=== PATIENT | female | born 1955 | race Caucasian/White ===

== ENCOUNTER 2020-09-17 09:05 | Outpatient (REF) | payer BC, SELFPAY ==
[2020-09-17 11:19] LABS: Hematocrit 40.3 % (37-47); Hemoglobin 12.6 g/dl (12.0-16.0); Mean Corpuscular HGB Conc 31.3 g/dl (31.0-35.0); Mean Corpuscular Hemoglobin 30.8 pg (27.0-33.0); Mean Corpuscular Volume 98.5 fL (80-98); Mean Platelet Volume 10.9 fL (9.4-12.3); Platelet Count 273 X10*3/uL (160-400); Red Blood Count 4.09 X10*6/uL (4.20-5.50); Red Cell Distribution Width 12.1 % (11.0-16.0)
[2020-09-17 11:35] LABS: Alanine Aminotransferase 20 U/L (0-31); Albumin Level 4.3 g/dL (3.5-5.0); Alkaline Phosphatase 53 U/L (39-117); Anion Gap 11 (12-20); Aspartate Amino Transferase 25 U/L (5-31); Bilirubin Direct 0.2 mg/dL (0.0-0.5); Bilirubin Total 0.5 mg/dL (0.0-1.0); Blood Urea Nitrogen 20 mg/dL (9-16); Calcium 8.6 mg/dL (8.4-10.2); Carbon Dioxide 27 mmol/L (22-29); Chloride 103 mmol/L (96-108); Cholesterol 175 mg/dL; Estimated Glomerular Filt Rate > 60; Glucose Fasting 89 mg/dL (60-99); HDL Cholesterol 59 mg/dL; LDL Cholesterol Calculated 100 mg/dl; Potassium 4.4 mmol/l (3.3-5.1); Sodium 137 mmol/L (135-145); Total Protein 6.7 g/dL (6.5-8.0); Triglycerides 83 mg/dL
[2020-09-17 11:55] LABS: Free T4 (Free Thyroxine) 1.22 ng/dL (0.71-1.85); Thyroid Stimulating Hormone 0.79 uIU/mL (0.32-4.0)
[2020-09-17 11:56] LABS: Vitamin D 25-OH Total 40.5 ng/mL (>30)
== END 2020-09-17 09:06 | disposition home or self-care (01) ==
LOC: HO.HMGCLDS 09:05
DX: I10 Essential (primary) hypertension (principal); E03.9 Hypothyroidism, unspecified; E78.5 Hyperlipidemia, unspecified; E55.9 Vitamin D deficiency, unspecified
CPT/HCPCS: 36415; 80053; 80061; 80076; 82248; 82306; 84439; 84443; 85027

== ENCOUNTER 2021-06-24 08:36 | Outpatient (REF) | payer MEDICARE, SELFPAY ==
[2021-06-24 12:06] LABS: Alanine Aminotransferase 13 U/L (0-31); Albumin Level 4.1 g/dL (3.5-5.0); Alkaline Phosphatase 56 U/L (39-117); Anion Gap 12 (12-20); Aspartate Amino Transferase 20 U/L (5-31); Bilirubin Total 0.4 mg/dL (0.0-1.0); Blood Urea Nitrogen 12 mg/dL (9-16); Calcium 8.9 mg/dL (8.4-10.2); Carbon Dioxide 25 mmol/L (22-29); Chloride 107 mmol/L (96-108); Cholesterol 174 mg/dL; Estimated Glomerular Filt Rate > 60; Glucose Fasting 96 mg/dL (60-99); HDL Cholesterol 58 mg/dL; LDL Cholesterol Calculated 102 mg/dl; Potassium 4.1 mmol/L (3.3-5.1); Sodium 140 mmol/L (135-145); Total Protein 6.4 g/dL (6.5-8.0); Triglycerides 70 mg/dL
[2021-06-24 12:30] LABS: Vitamin D 25-OH Total 48.2 ng/mL (>30)
== END 2021-06-24 08:37 | disposition home or self-care (01) ==
LOC: HO.HMGCLDS 08:36
PROVIDERS: PCP Internal Medicine; Visit Provider Internal Medicine
DX: E03.9 Hypothyroidism, unspecified (principal); E78.5 Hyperlipidemia, unspecified; I10 Essential (primary) hypertension
CPT/HCPCS: 36415; 80053; 80061; 82306; 84443

== ENCOUNTER 2022-01-15 09:23 | Outpatient (REF) | payer MEDICARE, SELFPAY ==
[2022-01-15 11:31] LABS: Appearance Urine HAZY; Color Urine YELLOW; Glucose Urine UA NEG (NEG); Leukocyte Esterase Urine TRACE (NEG); Nitrite Urine NEG (NEG); PH 5.5 (5.0-8.0); Specific Gravity - Urine >= 1.030 (1.005-1.025); Urine Blood NEG (NEG); Urine Ketones NEG (NEG); Urine Protein TRACE MG/DL (NEG-TRACE)
[2022-01-15 11:32] LABS: Hematocrit 39.6 % (37.0-47.0); Hemoglobin 12.8 g/dl (12.0-16.0); Mean Corpuscular HGB Conc 32.3 g/dl (31.0-35.0); Mean Corpuscular Hemoglobin 31.5 pg (27.0-33.0); Mean Corpuscular Volume 97.5 fL (80.0-98.0); Mean Platelet Volume 11.1 fL (9.4-12.3); Platelet Count 303 X10*3/uL (160-400); Red Blood Count 4.06 X10*6/uL (4.20-5.50); Red Cell Distribution Width 12.3 % (11.0-16.0); White Blood Count 5.1 X10*3/uL (4.8-10.8)
[2022-01-15 12:02] LABS: Bacteria Urine 1+ /LPF; RBC Urine 0 /HPF (0); Squamous Epithelial Cell Urine 2+ /LPF
[2022-01-15 12:03] LABS: Amorphous Sediment Urine 1+ /LPF; Mucus Urine 1+ /LPF
[2022-01-15 12:05] LABS: Alanine Aminotransferase 19 U/L (0-31); Albumin Level 4.1 g/dL (3.5-5.0); Alkaline Phosphatase 53 U/L (39-117); Anion Gap 15 (12-20); Aspartate Amino Transferase 22 U/L (5-31); Bilirubin Total 0.5 mg/dL (0.0-1.0); Blood Urea Nitrogen 13 mg/dL (9-16); Carbon Dioxide 23 mmol/L (22-29); Chloride 106 mmol/L (96-108); Cholesterol 180 mg/dL; Estimated Glomerular Filt Rate > 60; Glucose Fasting 101 mg/dL (60-99); HDL Cholesterol 52 mg/dL; LDL Cholesterol Calculated 107 mg/dl; Potassium 4.2 mmol/L (3.3-5.1); Sodium 140 mmol/L (135-145); Total Protein 6.6 g/dL (6.5-8.0); Triglycerides 106 mg/dL
== END 2022-01-15 09:24 | disposition home or self-care (01) ==
LOC: HO.HMGCLDS 09:23
PROVIDERS: PCP Internal Medicine; Visit Provider Internal Medicine
DX: E03.9 Hypothyroidism, unspecified (principal); E78.5 Hyperlipidemia, unspecified; I10 Essential (primary) hypertension
CPT/HCPCS: 36415; 80053; 80061; 81001; 84443; 85027

== ENCOUNTER 2022-08-17 08:34 | Outpatient (REF) | payer MEDICARE, SELFPAY ==
[2022-08-17 11:16] LABS: MANUAL DIFF FLAG NO
[2022-08-17 11:46] LABS: Basophils Absolute Auto 0.1 X10*3/uL (0.0-0.2); Basophils Percent Auto 1.6 % (0-2); Eosinophils Absolute Auto 0.1 X10*3/uL (0.0-0.4); Eosinophils Percent Auto 2.5 % (0-4); Hematocrit 36.7 % (37.0-47.0); Hemoglobin 11.9 g/dl (12.0-16.0); Imm Gran Abs Auto 0.01 X10*3/uL (0.00-0.03); Imm Gran Pct Auto 0.2 % (0.0-0.4); Lymphocytes Absolute Auto 2.2 X10*3/uL (1.2-4.9); Lymphocytes Percent Auto 38.5 % (20-40); Mean Corpuscular HGB Conc 32.4 g/dl (31.0-35.0); Mean Corpuscular Hemoglobin 31.4 pg (27.0-33.0); Mean Corpuscular Volume 96.8 fL (80.0-98.0); Mean Platelet Volume 10.8 fL (9.4-12.3); Monocytes Absolute Auto 0.4 X10*3/uL (0.1-1.2); Monocytes Percent Auto 7.2 % (2-11); Neutrophils Absolute Auto 2.8 x10*3/uL (2.0-8.3); Platelet Count 262 X10*3/uL (160-400); Red Blood Count 3.79 X10*6/uL (4.20-5.50); Red Cell Distribution Width 12.4 % (11.0-16.0); White Blood Count 5.6 X10*3/uL (4.8-10.8)
[2022-08-17 12:21] LABS: Alanine Aminotransferase 17 U/L (0-31); Albumin Level 4.1 g/dL (3.5-5.0); Alkaline Phosphatase 54 U/L (39-117); Anion Gap 15 (12-20); Aspartate Amino Transferase 25 U/L (5-31); Bilirubin Total 0.6 mg/dL (0.0-1.0); Blood Urea Nitrogen 14 mg/dL (9-16); Calcium 9.1 mg/dL (8.4-10.2); Carbon Dioxide 25 mmol/L (22-29); Chloride 105 mmol/L (96-108); Cholesterol 172 mg/dL; Estimated Glomerular Filt Rate > 60; Glucose Fasting 92 mg/dL (60-99); HDL Cholesterol 56 mg/dL; LDL Cholesterol Calculated 101 mg/dl; Sodium 141 mmol/L (135-145); Total Protein 6.5 g/dL (6.5-8.0); Triglycerides 79 mg/dL
== END 2022-08-17 08:35 | disposition home or self-care (01) ==
LOC: HO.HMGCLDS 08:34
PROVIDERS: PCP Internal Medicine; Visit Provider Internal Medicine
DX: I10 Essential (primary) hypertension (principal); E03.9 Hypothyroidism, unspecified; E78.5 Hyperlipidemia, unspecified
CPT/HCPCS: 36415; 80053; 80061; 84443; 85025

== ENCOUNTER 2022-08-24 13:39 | Outpatient (REF) | payer MEDICARE, SELFPAY ==
[2022-08-24 16:59] LABS: Iron 76 mcg/dL (30-160); Percent Iron Saturation 26 % (15-50); Total Iron Binding Capacity 291 mcg/dL (228-428); Unsaturated Iron Binding 215 ug/dL
[2022-08-24 17:32] LABS: Folate 12.1 ng/mL (> or = 4.0); Vitamin B12 301 pg/mL (200-900)
== END 2022-08-24 13:40 | disposition home or self-care (01) ==
LOC: HO.HMGCLDS 13:39
PROVIDERS: PCP Internal Medicine; Visit Provider Internal Medicine
DX: D64.9 Anemia, unspecified (principal); E55.9 Vitamin D deficiency, unspecified
CPT/HCPCS: 36415; 82306; 82607; 82746; 83540

== ENCOUNTER 2023-02-18 09:01 | Outpatient (REF) | payer MEDICARE, SELFPAY ==
[2023-02-18 11:33] LABS: MANUAL DIFF FLAG NO
[2023-02-18 11:54] LABS: Basophils Absolute Auto 0.1 X10*3/uL (0.0-0.2); Basophils Percent Auto 1.3 % (0-2); Eosinophils Absolute Auto 0.1 X10*3/uL (0.0-0.4); Eosinophils Percent Auto 2.6 % (0-4); Hematocrit 37.5 % (37.0-47.0); Hemoglobin 11.8 g/dl (12.0-16.0); Imm Gran Abs Auto 0.01 X10*3/uL (0.00-0.03); Imm Gran Pct Auto 0.2 % (0.0-0.4); Lymphocytes Percent Auto 36.5 % (20-40); Mean Corpuscular HGB Conc 31.5 g/dl (31.0-35.0); Mean Corpuscular Hemoglobin 31.1 pg (27.0-33.0); Mean Corpuscular Volume 98.7 fL (80.0-98.0); Mean Platelet Volume 11.1 fL (9.4-12.3); Monocytes Absolute Auto 0.4 X10*3/uL (0.1-1.2); Neutrophils Absolute Auto 2.8 x10*3/uL (2.0-8.3); Neutrophils Percent Auto 51.4 % (45-73); Platelet Count 280 X10*3/uL (160-400); Red Cell Distribution Width 12.6 % (11.0-16.0); White Blood Count 5.5 X10*3/uL (4.8-10.8)
[2023-02-18 12:26] LABS: Alanine Aminotransferase 25 U/L (0-31); Albumin Level 4.1 g/dL (3.5-5.0); Alkaline Phosphatase 53 U/L (39-117); Anion Gap 11 (12-20); Aspartate Amino Transferase 26 U/L (5-31); Bilirubin Total 0.7 mg/dL (0.0-1.0); Blood Urea Nitrogen 12 mg/dL (9-16); Carbon Dioxide 28 mmol/L (22-29); Chloride 108 mmol/L (96-108); Estimated Glomerular Filt Rate > 60; Glucose Fasting 100 mg/dL (60-99); Sodium 143 mmol/L (135-145); Total Protein 6.3 g/dL (6.5-8.0)
== END 2023-02-18 09:02 | disposition home or self-care (01) ==
LOC: HO.HMGCLDS 09:01
PROVIDERS: PCP Internal Medicine; Visit Provider Internal Medicine
DX: E03.9 Hypothyroidism, unspecified (principal); E78.5 Hyperlipidemia, unspecified; I10 Essential (primary) hypertension
CPT/HCPCS: 36415; 80053; 84443; 85025

== ENCOUNTER 2024-02-24 09:17 | Outpatient (REF) | payer MEDICARE, SELFPAY ==
[2024-02-24 10:20] LABS: MANUAL DIFF FLAG NO
[2024-02-24 10:33] LABS: Basophils Absolute Auto 0.1 X10*3/uL (0.0-0.2); Basophils Percent Auto 1.3 % (0-2); Eosinophils Absolute Auto 0.1 X10*3/uL (0.0-0.4); Eosinophils Percent Auto 2.2 % (0-4); Hematocrit 38.8 % (37.0-47.0); Hemoglobin 12.6 g/dl (12.0-16.0); Imm Gran Abs Auto 0.02 X10*3/uL (0.00-0.03); Imm Gran Pct Auto 0.4 % (0.0-0.4); Lymphocytes Absolute Auto 2.1 X10*3/uL (1.2-4.9); Mean Corpuscular HGB Conc 32.5 g/dl (31.0-35.0); Mean Corpuscular Hemoglobin 31.1 pg (27.0-33.0); Mean Corpuscular Volume 95.8 fL (80.0-98.0); Mean Platelet Volume 10.6 fL (9.4-12.3); Monocytes Absolute Auto 0.4 X10*3/uL (0.1-1.2); Monocytes Percent Auto 7.1 % (2-11); Neutrophils Absolute Auto 2.8 x10*3/uL (2.0-8.3); Platelet Count 303 X10*3/uL (160-400); Red Blood Count 4.05 X10*6/uL (4.20-5.50); Red Cell Distribution Width 12.2 % (11.0-16.0); White Blood Count 5.5 X10*3/uL (4.8-10.8)
[2024-02-24 11:12] LABS: Alanine Aminotransferase 19 U/L (0-31); Alkaline Phosphatase 53 U/L (39-117); Anion Gap 11 (12-20); Aspartate Amino Transferase 23 U/L (5-31); Bilirubin Total 0.5 mg/dL (0.0-1.0); Blood Urea Nitrogen 20 mg/dL (9-16); Calcium 8.7 mg/dL (8.4-10.2); Carbon Dioxide 28 mmol/L (22-29); Chloride 106 mmol/L (96-108); Cholesterol 172 mg/dL (<200); Estimated Glomerular Filt Rate > 60; Glucose Fasting 99 mg/dL (60-99); HDL Cholesterol 52 mg/dL (>40); Iron 120 mcg/dL (30-160); LDL Cholesterol Calculated 100 mg/dL (<100); Percent Iron Saturation 48 % (15-50); Potassium 3.8 mmol/L (3.3-5.1); Sodium 141 mmol/L (135-145); TSH reflex Free T4 0.21 uIU/mL (0.32-4.0); Total Iron Binding Capacity 248 mcg/dL (228-428); Total Protein 6.8 g/dL (6.5-8.0); Triglycerides 101 mg/dL (<150); Unsaturated Iron Binding 128 ug/dL; Vitamin D 25-OH Total 54.7 ng/mL (>30)
[2024-02-24 11:46] LABS: Free T4 (Free Thyroxine) 1.26 ng/dL (0.71-1.85)
[2024-02-24 12:40] LABS: Folate 5.5 ng/mL (> or = 4.0); Vitamin B12 266 pg/mL (200-900)
== END 2024-02-24 09:18 | disposition home or self-care (01) ==
LOC: HO.HMGCLDS 09:17
PROVIDERS: PCP Internal Medicine; Visit Provider Internal Medicine
DX: Z00.00 Encounter for general adult medical examination without abnormal findings (principal); E55.9 Vitamin D deficiency, unspecified; D64.9 Anemia, unspecified; I10 Essential (primary) hypertension; E03.9 Hypothyroidism, unspecified; E78.5 Hyperlipidemia, unspecified
CPT/HCPCS: 36415; 80053; 80061; 82306; 82607; 82746; 83540; 84439; 84443; 85025

== ENCOUNTER 2024-03-01 11:19 | Outpatient (AMB) | payer MEDICARE, SELFPAY ==
[2024-03-01 11:28] VITALS: BP 122/70; PULSE 75; O2SAT 98; BMI 32.0
--- NOTE | 2024-03-01 11:28 | AM.OFFVISMDC ---
Intake Vital Signs 03/01/24 11:28 Height 4 ft 9.2 in Weight 149 lb BMI 32.0 BP 122/70 Blood Pressure Location Rt brachial Position Sitting Pulse 75 Pulse Source Pulse Oximeter Pulse Oximetry (%) 98 Oxygen Delivery Method Room Air Intake Visit Reasons: BEBO [id number] Allergies No Known Allergies Allergy (Verified 03/01/24 11:38) Medication List - Last Reconciled 03/01/24 by Ana Jarrell MD cholecalciferol (vitamin D3) 50 mcg PO DAILY dicyclomine 20 mg PO DAILY PRN levothyroxine 100 mcg PO DAILY lisinopril 20 mg PO DAILY rosuvastatin 5 mg PO DAILY HPI HPI Comments History of Present Illness Details Pt presents for annual.Initiated the conversation about Advanced Directives. Advanced Directives help? patients prepare for current and future decisions about their medical treatment? and place of care. Discussed with patient that it is a process where a patients? current condition and prognosis are reviewed, their wishes for information? regarding their illness are elicited, and likely medical dilemmas are presented? and options discussed. The form can be amended as needed, reviewed yearly and? make changes as needed IPPE/AWV ? year old presents? for her ? Annual? Wellness Visit, initial visit.? Medical / Social History Reviewed? Past Medical History ?Yes? . ? [place]? of Care / Care Team list updated ?Yes . ? Surgical/Hospitalization? History ?Yes . ? Current Medications? (including OTC and supplements) ?Yes . ? Family History ?Yes? . ? Tobacco? Control form ?Yes . ? AUDIT-C (Alcohol use) form? ?Yes . ? Illicit drug use in Social? History ?Yes . ? Current diagnosis of? depression? ?No ? Appropriate PHQ2/PHQ9? completed ?Yes . ? Data entered by ?Medical? Merchandising Execution Associate and reviewed by provider ? Fall Risk ? Fall? History? Have you had any falls with? injury in the past year? ?No . ? Have you had two or more? falls in the past year? ?No . ? Fall Risk Assessment: ?No? falls in the past year . ? HRA filled out by? the patient, reviewed by Provider and scanned. ? IPPE/AWV ? Balance? [place]? ?Yes . ? Tandem? walk ?Yes . ? Walk and? Turn ?Yes . ? Rise from? sit to stand ?Yes . ?Vision? Corrective? lens ?Yes ? Vision? screen ? Up-to-date, has an appointment [] for vision? screening and glaucoma screening ?Hearing? Whisper? test ?pass .? Initiated the conversation about Advanced Directives. Advanced Directives help? patients prepare for current and future decisions about their medical treatment? and place of care. Discussed with patient that it is a process where a patients? current condition and prognosis are reviewed, their wishes for information? regarding their illness are elicited, and likely medical dilemmas are presented? and options discussed. The form can be amended as needed, reviewed yearly and? make changes as needed Written? Plan?Completed. See Patient? Documents. [facility] Medical History HTN (hypertension) Hyperlipidemia Hypothyroidism Mammogram normal Normal colonoscopy Normal Pap smear Skin cancer Surgical History H/O colonoscopy Family History Father Angina pectoris Cancer Mother No problems noted. Maternal Grandmother Breast CA Brother Cancer Brother Skin cancer Brother Multiple sclerosis Son Testicular cancer Daughter Asthma Social History Household Members Other:: , boyfriend, 2 children, 3 grandchildren Housing: House Alcohol intake: current Alcohol intake frequency: holidays/special occasions only Patient Tobacco Use Status: Former Tobacco user (15 years ago ) Years Smoked: 10 e-Cigarette/Vaping Use: Never Used Current occupational status: retired Cognitive needs: No Hearing needs: No Vision needs: No Questionnaire Medicare Wellness Checkup [age] What gender do you identify with?: female During the past 4 weeks, how much have you been bothered by emotional problems such as feeling anxious, depressed, irritable, sad or downhearted, and blue?: not at all During the past 4 weeks, has your physical & emotional health limited your social activities with family, friends, neighbors, or groups?: not at all During the past 4 weeks, how much bodily pain have you generally had?: very mild pain During the past 4 weeks, was someone available to help you if you needed & wanted help?: yes, as much as I wanted During the past 4 weeks, what was the hardest physical activity you could do for at least 2 minutes?: heavy Can you get to places out of walking distance without help? (For eg., can you travel alone on buses, taxis or drive your car?): Yes Can you go shopping for groceries or clothes without someone's help?: Yes Can you prepare your own meals?: Yes Can you do your housework without help?: Yes Because of any health problems, do you need the help of another person with your personal care needs such as eating, bathing, dressing or getting around the house?: No Can you handle your own money without help?: Yes During the past 4 weeks, how would you rate your health in general?: very good During the past 4 weeks how have things been going for you?: very well; could hardly better Are you having difficulties driving your car?: no Do you always fasten your seat belt when you are in a car?: yes, usually During past 4 weeks, have you been bothered by the following: never: Falling or dizzy when standing up, Sexual problems?, Trouble eating well?, Teeth or denture problems?, Problems using the telephone? and Tiredness or fatigue? Have you fallen 2 or more times in the past year?: No Are you afraid of falling?: No Are you a smoker?: no During the past 4 weeks, how many drinks of wine, beer, or other alcoholic beverages did you have?: 1 drink or less per week Do you exercise for about 20 minutes 3 or more times a week?: yes, some of the time Have you been given information to help with the following?: no: Hazards in your house that might hurt you? and no: Keeping track of your medications? How often do you have trouble taking medicines the way you have been told to take them?: I always take medicine as prescribed How confident are you that you can control & manage most of your health problems?: very confident What is your race?: White Mini Mental State Exam (MMSE) Orientation What is the (year) (season) (date) (day) (month)?: year, season, date, day and month Where are we (state) (county) (town or city) (hospital) (floor)?: state, county, town or city, hospital/clinic and floor Registration Name of 3 unrelated objects clearly and slowly, then ask patient to repeat all 3 of them. (1st repeat determines score. Make sure they can repeat all three): object 1 and object 2 Attention & Calculation (CHOOSE ONE) Spell WORLD backwards (DLROW): 5 letters Recall Ask patient to repeat the 3 items from question #3.: object 1, object 2 and object 3 Language Show patient a wristwatch & ask what it is. Repeat for pencil.: watch and pencil Ask the patient to repeat the phrase 'No ifs, ands, or buts' after you.: correct Ask the patient to 'take a piece of paper with their right hand' 'fold paper in half' 'place paper on floor': take paper in right hand, fold paper in half and place paper on floor Print the sentence 'CLOSE YOUR EYES' on a piece. If patient actually closes eyes then score.: followed written direction Give patient a blank piece of paper & ask to write a sentence. Score if it contains a noun & verb.: sentence contains subject and verb Ask patient to copy figure of intersecting pentagons exactly. Score if all 10 angles & 2 intersects are included.: all 10 angles present & 2 are intersected Score Score: 29 Activity of Daily Living Bathing - sponge bath, tub bath or shower: receives no assistance (gets in/out by self, if usual bathing means Dressing - getting clothes from closets & drawers, including inner/outer garments & fasteners.: gets clothes & gets completely dressed without help Toileting - going to the 'toilet room' for urine/bowel elimination & cleaning self/arranging clothes: goes to toilet room, cleans self, arranges clothes without help Transfer: moves in & out of bed and chair without help (may use support object) Continence: controls urination/bowel movements completely by self Feeding: feeds self without help Total Score: 0 Information obtained from: patient Using telephone: independent Traveling: independent Shopping: independent Preparing meals: independent Housework: independent Taking medicine: independent Managing money: independent PHQ-9 Over the last 2 weeks, how often have you been bothered by any of the following problems? 1. Little interest or pleasure in doing things: not at all 2. Feeling down, depressed, or hopeless: not at all 3. Trouble falling or staying asleep, or sleeping too much: not at all 4. Feeling tired or having little energy: not at all 5. Poor appetite or overeating: not at all 6. Feeling bad about yourself - or that you are a failure or have let yourself or your family down: not at all 7. Trouble concentrating on things, such as reading the newspaper or watching television: not at all 8. Moving or speaking so slowly that other people could have noticed. Or the opposite - being so fidgety or restless that you have been moving around a lot more than usual: not at all 9. Thoughts that you would be better off or of hurting yourself in some way: not at all Total score: 0 Depression Screening Interpretation: Negative Depression Screening Done: Yes 96358 - PHQ-9 Billing: Yes Source: Developed by Drs. Deejay Miles, Sabrina Rivas, Vasquez Cassidy and colleagues, with an educational annelise from [employer]. Review of Systems Const All systems reviewed & are unremarkable except as noted in HPI and below ENT Reports no additional complaints Card Reports no additional complaints Resp Reports no additional complaints GI Reports no additional complaints Reports no additional complaints Physical Exam Vital Signs: Last Vital Signs Pulse 75 03/01/24 11:28 BP 122/70 03/01/24 11:28 Pulse Ox 98 03/01/24 11:28 Oxygen Delivery Method Room Air 03/01/24 11:28 BMI result Body Mass Index 32.0 Const General: no acute distress HEENT Head: Yes normal to inspection Ears: hearing grossly normal bilaterally Eyes General: appearance normal, both eyes and all related structures Resp Effort & Inspection: normal respiratory effort Auscultation: clear to auscultation bilaterally Cardio Rhythm: regular rhythm Heart sounds: S1 normal heart sound present and S2 normal heart sound present GI Inspection: Yes normal to inspection Palpation (GI): Soft to palpation Percussion: Yes normal to percussion Auscultation: normal bowel sounds Extrem Other: Reproducible tenderness in the medial aspect of left elbow no soft tissue swelling, there is a full range of motion in the elbow joint General: Yes no clubbing, cyanosis or edema Assessment & Plan Assessment & Plan (1) Elbow pain, left: Code(s): M25.522 - Pain in left elbow Plan: Check x-ray and referred to physical therapy (2) Hypothyroidism: Code(s): E03.9 - Hypothyroidism, unspecified Plan: Continue levothyroxine recheck TSH in 2 months (3) HTN (hypertension): Code(s): I10 - Essential (primary) hypertension Plan: Continue current medications (4) Annual physical exam: Code(s): Z00.00 - Encounter for general adult medical examination without abnormal findings Plan: Well-balanced diet regular exercise discussed with the patient return in 6 months with a fasting labs before Orders: Orders TSH reflex Free T4 2 Months Comprehensive [place]. Panel Fast 6 Months XR elbow LT min 3V Today M25.522 - Pain in left elbow TSH reflex Free T4 6 Months Lipid Panel 6 Months PT Evaluation and Treatment Today M25.522 - Pain in left elbow Medications: Refilled levothyroxine 100 mcg PO DAILY 90 tabs 3RF lisinopril 20 mg PO DAILY 90 tabs 3RF rosuvastatin 5 mg PO DAILY 90 tabs 3RF dicyclomine 20 mg PO DAILY PRN 90 tabs 3RF abdominal pain cholecalciferol (vitamin D3) 50 mcg PO DAILY 90 caps 3RF Quality Reporting (2019) Depression/Bipolar (159/160/161/177) PHQ-9: Total score: 0 Coding Level of Care Code Medicare Subsequent (G0439) Diagnoses Elbow pain, left M25.522 Hypothyroidism E03.9 HTN (hypertension) I10 Annual physical exam Z00.00 CPT Codes Advance Care Planning - Advance Care Planning discussion: On file, no changes ([id number]) Advance Care Planning - Time spent: 1-15 minutes, on File ([id number]) Advance Care Planning Advance Care Planning discussion: On file, no changes Forms completed: Health Care Proxy Time spent: 1-15 minutes, on File
== END 2024-03-01 12:22 | disposition home or self-care (01) ==
PROVIDERS: Visit Provider Internal Medicine
DX: Z00.00 Encounter for general adult medical examination without abnormal findings (principal); M25.522 Pain in left elbow; E03.9 Hypothyroidism, unspecified; I10 Essential (primary) hypertension
CPT/HCPCS: 1123F; G0439

== ENCOUNTER 2024-03-02 09:08 | Outpatient (REF) | payer MEDICARE, SELFPAY ==
--- NOTE | ~2024-03-02 | XR_ITS ---
EXAMINATION: XR ELBOW, LEFT CLINICAL INFORMATION: Pain COMPARISON: None available. TECHNIQUE: AP, lateral, and oblique views of the left elbow. FINDINGS: There is degenerative spurring, along the medial epicondyle. The radial head is intact. There is no fracture, dislocation or destructive process. XR/XR elbow LT min 3V IMPRESSION: Mild degenerative change.
== END 2024-03-02 09:09 | disposition home or self-care (01) ==
LOC: HO.HMGCX 09:08
PROVIDERS: PCP Internal Medicine; Visit Provider Internal Medicine
DX: M25.522 Pain in left elbow (principal)
CPT/HCPCS: 73080

== ENCOUNTER 2024-05-14 08:56 | Outpatient (REF) | payer MEDICARE, SELFPAY ==
[2024-05-14 14:00] LABS: TSH reflex Free T4 0.09 uIU/mL (0.32-4.0)
[2024-05-14 14:44] LABS: Free T4 (Free Thyroxine) 1.33 ng/dL (0.71-1.85)
== END 2024-05-14 08:57 | disposition home or self-care (01) ==
LOC: HO.HMGCLDS 08:56
PROVIDERS: PCP Internal Medicine; Visit Provider Internal Medicine
DX: E03.9 Hypothyroidism, unspecified (principal)
CPT/HCPCS: 36415; 84439; 84443

== ENCOUNTER 2024-07-19 08:43 | Outpatient (REF) | payer MEDICARE, SELFPAY ==
[2024-07-19 11:07] LABS: TSH reflex Free T4 0.67 uIU/mL (0.32-4.0)
== END 2024-07-19 08:44 | disposition home or self-care (01) ==
LOC: HO.HMGCLDS 08:43
PROVIDERS: PCP Internal Medicine; Visit Provider Internal Medicine
DX: E03.9 Hypothyroidism, unspecified (principal)
CPT/HCPCS: 36415; 84443

== ENCOUNTER 2024-08-15 11:06 | Outpatient (AMB) | payer MEDICARE, SELFPAY ==
--- NOTE | 2024-08-15 11:07 | MHC.PC.OV ---
Vital Signs 08/15/24 11:08 Height 4 ft 9.2 in Weight 149 lb BMI 32.0 BP 136/78 Blood Pressure Location Lt brachial Position Sitting Pulse 78 Pulse Source Pulse Oximeter Pulse Oximetry (%) 98 Oxygen Delivery Method Room Air Intake Visit Reasons: 6month f/u regular chkup Intake Note: Pt is here today for 6 months follow up visit. Allergies No Known Allergies Allergy (Verified 08/15/24 11:10) Medication List - Last Reconciled 08/15/24 by Ana Jarrell MD cholecalciferol (vitamin D3) 50 mcg PO DAILY dicyclomine 20 mg PO DAILY PRN levothyroxine 88 mcg PO DAILY lisinopril 20 mg PO DAILY rosuvastatin 5 mg PO DAILY Tobacco use date assessed: 08/15/24 Fall risk assessment: No Falls in past year Last assessed Fall Risk: 08/15/24 Dental Screening Dental Screen Date: 08/15/24 Did you have a dental visit in the last 12 months?: No Did you have a dental problem in the last 6 months where you did not have access to dental care?: No Was dental information given to patient?: Patient declined HPI 6month f/u regular chkup HPI Details Pt presents for f/u HTN, hyperlipid, hypothyroid, stable on medications PFSH Medical History HTN (hypertension) Hyperlipidemia Hypothyroidism Mammogram normal Normal colonoscopy Normal Pap smear Skin cancer Surgical History H/O colonoscopy Family History Father Angina pectoris Cancer Mother No problems noted. Maternal Grandmother Breast CA Brother Cancer Brother Skin cancer Brother Multiple sclerosis Son Testicular cancer Daughter Asthma Social History Household Members Other:: , boyfriend, 2 children, 3 grandchildren Housing: House Alcohol intake: current Alcohol intake frequency: holidays/special occasions only Patient Tobacco Use Status: Former Tobacco user (15 years ago ) Years Smoked: 10 e-Cigarette/Vaping Use: Never Used service: No Current occupational status: retired Cognitive needs: No Hearing needs: No Vision needs: No Questionnaire PHQ-9 Over the last 2 weeks, how often have you been bothered by any of the following problems? 1. Little interest or pleasure in doing things: not at all 2. Feeling down, depressed, or hopeless: not at all 3. Trouble falling or staying asleep, or sleeping too much: not at all 4. Feeling tired or having little energy: not at all 5. Poor appetite or overeating: not at all 6. Feeling bad about yourself - or that you are a failure or have let yourself or your family down: not at all 7. Trouble concentrating on things, such as reading the newspaper or watching television: not at all 8. Moving or speaking so slowly that other people could have noticed. Or the opposite - being so fidgety or restless that you have been moving around a lot more than usual: not at all 9. Thoughts that you would be better off or of hurting yourself in some way: not at all Total score: 0 Depression Screening Interpretation: Negative Depression Screening Done: Yes 85774 - PHQ-9 Billing: Yes Source: Developed by Drs. Deejay iMles, Sabrina Rivas, Vasquez Cassidy and colleagues, with an educational annelise from [employer]. Thrive Questionnaire Date Thrive assessed: 08/15/24 I am a: Patient What is your living situation today?: I have a steady place to live Within the past 12 months, did the food you bought not last and you didn't have the money to get more?: Never true Within the past 12 months, did you worry whether your food would run out before you got money to buy more?: Never true Do you have trouble paying for medicines?: No Do you have trouble getting transportation to medical appointments?: No Do you have trouble paying your heating and electricity bill?: No Do you have trouble taking care of your child, family member or friend?: No Do you have trouble with day-to-day activities such as bathing, preparing meals, shopping, managing finances, etc.?: No Are you currently unemployed and looking for a job?: No Are you interested in more education?: No Please select the resources that you would like help with: None Currently or been in a relationship where the following occur: No concerns reported THRIVE Score: 0 AUDIT C Alcohol Use Questionnaire (AUDIT-C) 1. How often do you have a drink containing alcohol?: Monthly or less 2. How many drinks containing alcohol do you have on a typical day when you are drinking?: 1 or 2 3. How often do you have six or more drinks on one occasion?: Never Total Score: 1 MIR-7 AMB Questionnaire MIR-7 Date MIR - 7 assessed: 08/15/24 Feeling nervous, anxious, or on edge: 0 = Not at all Not being able to stop or control worryin = Not at all Worrying too much about different things: 0 = Not at all Trouble relaxin = Not at all Being so restless that it is hard to sit still: 0 = Not at all Becoming easily annoyed or irritable: 0 = Not at all Feeling afraid as if something awful might happen: 0 = Not at all Total MIR-7 score (0-4 normal; 5-9 mild; 10-14 moderate; 15-21 severe): 0 Source: Developed by Drs. Deejay Miles, Sabrina Rivas, Vasquez Cassidy and colleagues, with an educational annelise from [employer]. MIR-7 Assessment Billing MIR-7 Assessment Tool: MIR-7 Assessment 41805 Review of Systems Const All systems reviewed & are unremarkable except as noted in HPI and below ENT Reports no additional complaints Card Reports no additional complaints Resp Reports no additional complaints GI Reports no additional complaints Reports no additional complaints Physical exam (Primary Care) Vital Signs: Last Vital Signs Pulse 78 08/15/24 11:08 BP 136/78 08/15/24 11:08 Pulse Ox 98 08/15/24 11:08 Oxygen Delivery Method Room Air 08/15/24 11:08 BMI result Body Mass Index 32.0 Tobacco/Smoking Status: Tobacco use Status Tobacco use date assessed 08/15/24 08/15/24 11:13 Patient Tobacco Use Status Former Tobacco user (15 08/15/24 11:10 years ago ) e-Cigarette/Vaping Use Never Used 08/15/24 11:10 PHQ-9: PHQ-9 Score PHQ-9: Total score 0 08/15/24 11:14 Depression Screening Interpretation: Negative Thrive Assessment: Date of Thrive Assessment Date Thrive assessed 08/15/24 08/15/24 11:14 Currently or been in a relationship where the following occur: No concerns reported Const General: no acute distress HENMT Mouth: Normal oral and palatal mucosa present Neck Neck: Yes supple Resp Effort & Inspection: normal respiratory effort Auscultation: clear to auscultation bilaterally Cardio Rhythm: regular rhythm Heart sounds: S1 normal heart sound present and S2 normal heart sound present GI Inspection: Yes normal to inspection Palpation (GI): Soft to palpation Percussion: Yes normal to percussion Coding Level of Care Code Est Pt Level 4 (84054) Diagnoses HTN (hypertension) I10 Hypothyroidism E03.9 Anemia D64.9 Vitamin D deficiency E55.9 Hyperlipidemia E78.5 Additional Codes MIR-7 Assessment Billing - MIR-7 Assessment Tool: MIR-7 Assessment 06737 ([id number]) Assessment & Plan Assessment & Plan (1) HTN (hypertension): Code(s): I10 - Essential (primary) hypertension Category: Medical Plan: Continue Lisinopril (2) Hypothyroidism: Code(s): E03.9 - Hypothyroidism, unspecified Category: Medical Plan: Continue Levothyroxine (3) Anemia: Code(s): D64.9 - Anemia, unspecified Category: Medical Plan: Monitor CBC (4) Vitamin D deficiency: Code(s): E55.9 - Vitamin D deficiency, unspecified Category: Medical Plan: Continue vitamin-D supplement (5) Hyperlipidemia: Code(s): E78.5 - Hyperlipidemia, unspecified Category: Medical Plan: Continue statin Orders: Orders TSH reflex Free T4 6 Months D64.9 - Anemia, unspecified, E03.9 - Hypothyroidism, unspecified, E55.9 - Vitamin D deficiency, unspecified, I10 - Essential (primary) hypertension, Z00.00 - Encounter for general adult medical examination without abnormal findings Comprehensive [place]. Panel Fast 6 Months D64.9 - Anemia, unspecified, E03.9 - Hypothyroidism, unspecified, E55.9 - Vitamin D deficiency, unspecified, I10 - Essential (primary) hypertension, Z00.00 - Encounter for general adult medical examination without abnormal findings Complete Blood Count Auto Diff 6 Months D64.9 - Anemia, unspecified, E03.9 - Hypothyroidism, unspecified, E55.9 - Vitamin D deficiency, unspecified, I10 - Essential (primary) hypertension, Z00.00 - Encounter for general adult medical examination without abnormal findings Lipid Panel 6 Months D64.9 - Anemia, unspecified, E03.9 - Hypothyroidism, unspecified, E55.9 - Vitamin D deficiency, unspecified, I10 - Essential (primary) hypertension, Z00.00 - Encounter for general adult medical examination without abnormal findings Vitamin D 25-OH Total 6 Months D64.9 - Anemia, unspecified, E03.9 - Hypothyroidism, unspecified, E55.9 - Vitamin D deficiency, unspecified, I10 - Essential (primary) hypertension, Z00.00 - Encounter for general adult medical examination without abnormal findings
[2024-08-15 11:08] VITALS: BP 136/78; PULSE 78; O2SAT 98; BMI 32.0
== END 2024-08-15 12:49 | disposition home or self-care (01) ==
PROVIDERS: PCP Internal Medicine; Visit Provider Internal Medicine
DX: I10 Essential (primary) hypertension (principal); E03.9 Hypothyroidism, unspecified; D64.9 Anemia, unspecified; E55.9 Vitamin D deficiency, unspecified; E78.5 Hyperlipidemia, unspecified

== ENCOUNTER → 2024-08-15 11:06 | Outpatient (BNVA) | payer MEDICARE, SELFPAY | PROVIDERS: PCP Internal Medicine; Visit Provider Internal Medicine | DX: I10 Essential (primary) hypertension (principal); E03.9 Hypothyroidism, unspecified; D64.9 Anemia, unspecified; E55.9 Vitamin D deficiency, unspecified; E78.5 Hyperlipidemia, unspecified | CPT/HCPCS: 96127; 99212 ==

== ENCOUNTER 2025-02-27 07:46 | Outpatient (REF) | payer MEDICARE, SELFPAY ==
--- OUTSIDE RECORDS SUMMARY | 2025-02-27 07:49 | XMS_ITS | Clinical Summary ---
Author Organization [facility] Address [address] [place] [address] Phone Care Team Providers Care President Name Role Phone Ana Jarrell MD Primary Care Provider [phone] Surgical History Surgery Date Site/Laterality Comments BREAST [...] Signed Date: 10/08/2024 17:42 ET Workstation ID: [id number] Transcribed By: Self Edit Transcribed Date: 10/08/2024 [...] Signed Date: 10/08/2024 17:42 ET Workstation ID: [id number] Transcribed By: Self Edit Transcribed Date: 10/08/2024 17:33 ET us Self Referral Sppl IMG BI PROCEDURES Final Resul t * LUIS DEXA AXIAL SKELETON (09/08/2022 10:18 AM EST) Anatomical Region Laterality Modality Mammography 09/08/2022 9:24 AM EST Narrative 09/08/2022 10:18 AM EST [facility] Diagnostic Imaging Department [address] [place] [address] Patient: ??NASRIN CORREIA ?/Age/Sex: 1955 - 66 - F Unit#: ??[id number] ? Location/Status: ??SPDIMAM/REG CLI ? Mnemonic/Ordering Site: ??MAMDEXAAX/SPMAM Ordering Physician: ??WESTLEY WOLFE MD [facility] Dexa Axial Skeleton - 09/08/22 - HISTORY: [...] probability of hip fracture of 0.7%. Code 77847 Dictating Physician: ??ARTEM CONWAY MD Electronically Signed by: ??ARTEM CONWAY MD Dic Date/Time: ??09/08/22 1017 Sign date/Time: ??09/08/22 1018 Procedure Note Artem Conway MD - 12/02/2023 [facility] Diagnostic Imaging Department [address] [place] [address] Patient: NASRIN CORREIA Kayode Ferro./Age/Sex: 1955 - 66 - F Unit#: [id number] Location/Status: [facility] Ordering Physician: WESTLEY WOLFE MD Luis [...] density of the femurs bilaterally is 1.144 gm/fu6javhz is 114% of that of young normals [...] probability of hip fracture of 0.7%. Code 71207 Dictating Physician: ARTEM CONWAY MD Electronically Signed by: ARTEM CONWAY MD Dic Date/Time: 09/08/22 1017 Sign date/Time: 09/08/22 1018 Westley Wolfe MD IMG BI PROCEDURES Final Result from Last 3 Months or Most Recently Relevant to Health Maintenance Insurance MEDICARE [facility] Care Teams President Relationship Specialty Start Date End Date Ana Jarrell MD [address] [place] [address] PCP - General Internal Medicine 10/04/24
[2025-02-27 10:03] LABS: MANUAL DIFF FLAG NO
[2025-02-27 10:08] LABS: Basophils Absolute Auto 0.1 X10*3/uL (0.0-0.2); Basophils Percent Auto 1.5 % (0-2); Eosinophils Absolute Auto 0.1 X10*3/uL (0.0-0.4); Eosinophils Percent Auto 2.3 % (0-4); Hematocrit 37.5 % (37.0-47.0); Hemoglobin 12.1 g/dl (12.0-16.0); Imm Gran Abs Auto 0.01 X10*3/uL (0.00-0.03); Imm Gran Pct Auto 0.2 % (0.0-0.4); Lymphocytes Absolute Auto 1.9 X10*3/uL (1.2-4.9); Lymphocytes Percent Auto 36.6 % (20-40); Mean Corpuscular HGB Conc 32.3 g/dl (31.0-35.0); Mean Corpuscular Hemoglobin 31.3 pg (27.0-33.0); Mean Corpuscular Volume 96.9 fL (80.0-98.0); Mean Platelet Volume 10.7 fL (9.4-12.3); Monocytes Absolute Auto 0.4 X10*3/uL (0.1-1.2); Monocytes Percent Auto 7.7 % (2-11); Neutrophils Absolute Auto 2.7 x10*3/uL (2.0-8.3); Neutrophils Percent Auto 51.7 % (45-73); Platelet Count 294 X10*3/uL (160-400); Red Blood Count 3.87 X10*6/uL (4.20-5.50); Red Cell Distribution Width 12.7 % (11.0-16.0); White Blood Count 5.2 X10*3/uL (4.8-10.8)
[2025-02-27 10:48] LABS: Alanine Aminotransferase 22 U/L (0-31); Albumin Level 4.1 g/dL (3.5-5.0); Alkaline Phosphatase 53 U/L (39-117); Anion Gap 12 (12-20); Aspartate Amino Transferase 31 U/L (5-31); Bilirubin Total 0.6 mg/dL (0.0-1.0); Blood Urea Nitrogen 14 mg/dL (9-16); Calcium 8.8 mg/dL (8.4-10.2); Carbon Dioxide 26 mmol/L (22-29); Chloride 108 mmol/L (96-108); Cholesterol 177 mg/dL (<200); Estimated Glomerular Filt Rate > 60; Glucose Fasting 96 mg/dL (60-99); HDL Cholesterol 53 mg/dL (>40); LDL Cholesterol Calculated 105 mg/dL (<100); Potassium 3.9 mmol/L (3.3-5.1); Sodium 142 mmol/L (135-145); Total Protein 6.6 g/dL (6.5-8.0); Triglycerides 95 mg/dL (<150)
[2025-02-27 10:55] LABS: TSH reflex Free T4 1.95 uIU/mL (0.32-4.0); Vitamin D 25-OH Total 54.8 ng/mL (>30)
== END 2025-02-27 07:47 | disposition home or self-care (01) ==
LOC: HO.HMGCLDS 07:46
PROVIDERS: PCP Internal Medicine; Visit Provider Internal Medicine
DX: Z00.00 Encounter for general adult medical examination without abnormal findings (principal); E55.9 Vitamin D deficiency, unspecified; D64.9 Anemia, unspecified; I10 Essential (primary) hypertension; E03.9 Hypothyroidism, unspecified
CPT/HCPCS: 36415; 80053; 80061; 82306; 84443; 85025

== ENCOUNTER 2025-03-05 09:35 | Outpatient (AMB) | payer MEDICARE, SELFPAY ==
--- NOTE | 2025-03-05 09:46 | AM.OFFVISMDC ---
Intake Vital Signs 03/05/25 09:47 Height 4 ft 9.2 in Weight 152 lb BMI 32.7 BP 122/70 Blood Pressure Location Lt brachial Position Sitting Respiration 18 Pulse 70 Pulse Source Pulse Oximeter Temp 98.1 F Temp Source Oral Pulse Oximetry (%) 99 Oxygen Delivery Method Room Air Intake Visit Reasons: SWV G0439 Allergies No Known Allergies Allergy (Verified 03/05/25 09:47) Medication List - Last Reconciled 03/05/25 by Ana Jarrell MD cholecalciferol (vitamin D3) 50 mcg PO DAILY dicyclomine 20 mg PO DAILY PRN levothyroxine 88 mcg PO DAILY lisinopril 20 mg PO DAILY rosuvastatin 5 mg PO DAILY HPI SWV G0439 HPI Details Initiated the conversation about Advanced Directives. Advanced Directives help? patients prepare for current and future decisions about their medical treatment? and place of care. Discussed with patient that it is a process where a patients? current condition and prognosis are reviewed, their wishes for information? regarding their illness are elicited, and likely medical dilemmas are presented? and options discussed. The form can be amended as needed, reviewed yearly and? make changes as needed IPPE/AWV ? year old presents? for her ? Annual? Wellness Visit, initial visit.? Medical / Social History Reviewed? Past Medical History ?Yes? . ? Inupiat? of Care / Care Team list updated ?Yes . ? Surgical/Hospitalization? History ?Yes . ? Current Medications? (including OTC and supplements) ?Yes . ? Family History ?Yes? . ? Tobacco? Control form ?Yes . ? AUDIT-C (Alcohol use) form? ?Yes . ? Illicit drug use in Social? History ?Yes . ? Current diagnosis of? depression? ?No ? Appropriate PHQ2/PHQ9? completed ?Yes . ? Data entered by ?Medical? Brick Loader and reviewed by provider ? Fall Risk ? Fall? History? Have you had any falls with? injury in the past year? ?No . ? Have you had two or more? falls in the past year? ?No . ? Fall Risk Assessment: ?No? falls in the past year . ? HRA filled out by? the patient, reviewed by Provider and scanned. ? IPPE/AWV ? Balance? Romberg? ?Yes . ? Tandem? walk ?Yes . ? Walk and? Turn ?Yes . ? Rise from? sit to stand ?Yes . ?Vision? Corrective? lens ?Yes ? Vision? screen ? Up-to-date, has an appointment [] for vision? screening and glaucoma screening ?Hearing? Whisper? test ?pass .? Initiated the conversation about Advanced Directives. Advanced Directives help? patients prepare for current and future decisions about their medical treatment? and place of care. Discussed with patient that it is a process where a patients? current condition and prognosis are reviewed, their wishes for information? regarding their illness are elicited, and likely medical dilemmas are presented? and options discussed. The form can be amended as needed, reviewed yearly and? make changes as needed Written? Plan?Completed. See Patient? Documents. [facility] Medical History (Updated 03/05/25 @ 10:15 by Ana Jarrell MD) Hyperlipidemia Normal Pap smear Mammogram normal Normal colonoscopy Skin cancer Hypothyroidism HTN (hypertension) Surgical History H/O colonoscopy Family History Father Angina pectoris Cancer Mother No problems noted. Maternal Grandmother Breast CA Brother Cancer Brother Skin cancer Brother Multiple sclerosis Son Testicular cancer Daughter Asthma Social History Household Members Other:: , boyfriend, 2 children, 3 grandchildren Housing: House Alcohol intake: current Alcohol intake frequency: holidays/special occasions only Patient Tobacco Use Status: Former Tobacco user (15 years ago ) Years Smoked: 10 e-Cigarette/Vaping Use: Never Used service: No Current occupational status: retired Cognitive needs: No Hearing needs: No Vision needs: No Questionnaire Medicare Wellness Checkup [age] What gender do you identify with?: female During the past 4 weeks, how much have you been bothered by emotional problems such as feeling anxious, depressed, irritable, sad or downhearted, and blue?: not at all During the past 4 weeks, has your physical & emotional health limited your social activities with family, friends, neighbors, or groups?: not at all During the past 4 weeks, how much bodily pain have you generally had?: very mild pain During the past 4 weeks, was someone available to help you if you needed & wanted help?: yes, as much as I wanted During the past 4 weeks, what was the hardest physical activity you could do for at least 2 minutes?: heavy Can you get to places out of walking distance without help? (For eg., can you travel alone on buses, taxis or drive your car?): Yes Can you go shopping for groceries or clothes without someone's help?: Yes Can you prepare your own meals?: Yes Can you do your housework without help?: Yes Because of any health problems, do you need the help of another person with your personal care needs such as eating, bathing, dressing or getting around the house?: No Can you handle your own money without help?: Yes During the past 4 weeks, how would you rate your health in general?: very good During the past 4 weeks how have things been going for you?: very well; could hardly better Are you having difficulties driving your car?: no Do you always fasten your seat belt when you are in a car?: yes, usually During past 4 weeks, have you been bothered by the following: never: Falling or dizzy when standing up, Sexual problems?, Trouble eating well?, Teeth or denture problems?, Problems using the telephone? and Tiredness or fatigue? Have you fallen 2 or more times in the past year?: No Are you afraid of falling?: No Are you a smoker?: no During the past 4 weeks, how many drinks of wine, beer, or other alcoholic beverages did you have?: 1 drink or less per week Do you exercise for about 20 minutes 3 or more times a week?: yes, some of the time Have you been given information to help with the following?: no: Hazards in your house that might hurt you? and no: Keeping track of your medications? How often do you have trouble taking medicines the way you have been told to take them?: I always take medicine as prescribed How confident are you that you can control & manage most of your health problems?: very confident What is your race?: White Mini Mental State Exam (MMSE) Orientation What is the (year) (season) (date) (day) (month)?: year, season, date, day and month Where are we (state) (county) (town or city) (hospital) (floor)?: state, county, town or city, hospital/clinic and floor Registration Name of 3 unrelated objects clearly and slowly, then ask patient to repeat all 3 of them. (1st repeat determines score. Make sure they can repeat all three): object 1, object 2 and object 3 Attention & Calculation (CHOOSE ONE) Spell WORLD backwards (DLROW): 5 letters Recall Ask patient to repeat the 3 items from question #3.: object 1, object 2 and object 3 Language Show patient a wristwatch & ask what it is. Repeat for pencil.: watch and pencil Ask the patient to repeat the phrase 'No ifs, ands, or buts' after you.: correct Ask the patient to 'take a piece of paper with their right hand' 'fold paper in half' 'place paper on floor': take paper in right hand, fold paper in half and place paper on floor Print the sentence 'CLOSE YOUR EYES' on a piece. If patient actually closes eyes then score.: followed written direction Give patient a blank piece of paper & ask to write a sentence. Score if it contains a noun & verb.: sentence contains subject and verb Score Score: 29 PHQ-9 Over the last 2 weeks, how often have you been bothered by any of the following problems? 1. Little interest or pleasure in doing things: not at all 2. Feeling down, depressed, or hopeless: not at all 3. Trouble falling or staying asleep, or sleeping too much: not at all 4. Feeling tired or having little energy: not at all 5. Poor appetite or overeating: not at all 6. Feeling bad about yourself - or that you are a failure or have let yourself or your family down: not at all 7. Trouble concentrating on things, such as reading the newspaper or watching television: not at all 8. Moving or speaking so slowly that other people could have noticed. Or the opposite - being so fidgety or restless that you have been moving around a lot more than usual: not at all 9. Thoughts that you would be better off or of hurting yourself in some way: not at all Total score: 0 Depression Screening Interpretation: Negative Depression Screening Done: Yes 11715 - PHQ-9 Billing: Yes Source: Developed by Drs. Deejay Miles, Sabrina Rivas, Vasquez Cassidy and colleagues, with an educational annelise from [employer]. Review of Systems Const All systems reviewed & are unremarkable except as noted in HPI and below Eyes Reports no additional complaints ENT Reports no additional complaints Card Reports no additional complaints Resp Reports no additional complaints GI Reports no additional complaints Reports no additional complaints Musc Reports no additional complaints Physical Exam Vital Signs: Last Vital Signs Temp 98.1 F 03/05/25 09:47 Pulse 70 03/05/25 09:47 Resp 18 03/05/25 09:47 BP 122/70 03/05/25 09:47 Pulse Ox 99 03/05/25 09:47 Oxygen Delivery Method Room Air 03/05/25 09:47 BMI result Body Mass Index 32.7 Const General: no acute distress HEENT Head: Yes normal to inspection Ears: hearing grossly normal bilaterally Eyes General: appearance normal, both eyes and all related structures Neck Neck: Yes no lymphadenopathy and Yes supple Resp Effort & Inspection: normal respiratory effort Auscultation: clear to auscultation bilaterally Cardio Rhythm: regular rhythm Heart sounds: S1 normal heart sound present and S2 normal heart sound present GI Inspection: Yes normal to inspection Palpation (GI): Soft to palpation Percussion: Yes normal to percussion Auscultation: normal bowel sounds Extrem General: Yes no clubbing, cyanosis or edema Immunizations pneumoc 20-robel conj-dip cr(PF) 0.5 mL IM syringe Performing Provider: Ana Jarrell MD Performing Location: [facility] [place] [facility] Administered by: OJE Jin on 03/05/25 10:14 Dose Route Admin Location Dispensed Lot Number Expiration Date [facility] Equipment Operator/Laborer 0.5 mL IM Left Deltoid 0.5 mL [id number] 01/28/26 [id number] [employer] VIS Given Date VIS Provided VIS Publication Date 03/05/25 Single Vaccine 21 Eligibility Eligibility Date Funding Source Not [facility] Eligible 03/05/25 Private Assessment & Plan Assessment & Plan (1) Annual physical exam: Code(s): Z00.00 - Encounter for general adult medical examination without abnormal findings Plan: Well-balanced diet regular physical activity discussed with the patient. She is going to [place] for the summer (2) HTN (hypertension): Code(s): I10 - Essential (primary) hypertension Plan: Continue lisinopril (3) Hypothyroidism: Code(s): E03.9 - Hypothyroidism, unspecified Plan: Continue levothyroxine Medications: Refilled levothyroxine 88 mcg PO DAILY 90 tabs 3RF cholecalciferol (vitamin D3) 50 mcg PO DAILY 90 caps 3RF rosuvastatin 5 mg PO DAILY 90 tabs 3RF lisinopril 20 mg PO DAILY 90 tabs 3RF Quality Reporting (2019) Depression/Bipolar (159/160/161/177) PHQ-9: Total score: 0 Coding Level of Care Code Medicare Subsequent (G0439) Diagnoses Annual physical exam Z00.00 HTN (hypertension) I10 Hypothyroidism E03.9 CPT Codes Advance Care Planning - Advance Care Planning discussion: On file, no changes ([id number]) Advance Care Planning - Time spent: 1-15 minutes, on File ([id number]) Additional Codes PHQ-9 - 04083 - PHQ-9 Billing: Yes ([id number]) Advance Care Planning Advance Care Planning discussion: On file, no changes Forms completed: Health Care Proxy Time spent: 1-15 minutes, on File Did not discuss due to Cultural/Spiritual beliefs: Yes
[2025-03-05 09:47] VITALS: BP 122/70; PULSE 70; RESP 18; TEMP 36.7; O2SAT 99; BMI 32.7
--- OUTSIDE RECORDS SUMMARY | 2025-03-05 10:38 | XMS_ITS ---
Author Organization [facility] Address [address] [place] [address] Care Team Providers Care Livestock Inspector Name Role Phone Ana Jarrell MD Primary Care Provider Deejay Mercado Unavailable [phone] Allergies No Known Allergies REASON FOR VISIT [...] Status Risk Notes Problem Colon cancer screening (686783760) Colon cancer screening (Z12.11) Active confirmed Problem Pre-procedure evaluation check (131873058) Encounter for other preprocedural examination (Z01.818) Active confirmed Vital Signs Temperature 98.0 degrees Fahrenheit 12/07/19 25 Blood pressure systolic 000 mm Hg 12/07/19 25 Blood pressure diastolic 00 mm Hg 025 Height 60 in 2024 Weight 153 lb 2 oz lbs 2024 BMI 29.90 kg/m2 2024 Encounters Encounter Location Date Provider Diagnosis [facility] [address] [place] [phone] 2024 Deejay Bauman Colon cancer screeni Z12.11 [...] Provider Name:Deejay Bauman , 03/27/2025 08:30:00 AM, [address] [place] [address], [id number], Progress Notes * CURTIS CORREIAEDOB:[birth year] (69 yo F)Acc No.[id number] Progress Notes Patient:?NASRIN CORREIA Provider:?Deejay Bauman MD :1955???Age:69 Y???Sex:Female D ate:2024 Address: [address] [id number] Pcp:Ana Jarrell MD Subjective: * Chief Complaints: [...] Screen?Points: 1, Interpretation: Negative.?Miscellaneous:?Marital status: . 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 ???Nonsmoker; no sig [...] Procedure Codes:?3017F COLOR ECTAL CA SCREEN DOC [id number] TOBACCO NON-BHPAI4490 BP SCR NOT PRFRM REC REASON NOS [...] MD Date:? 025 Generated for Aranza scott/Chun/Ambika on:?03/05/2025 10:37 AM EDT History and Physical Notes * HPI [...]
--- OUTSIDE RECORDS SUMMARY | 2025-03-05 10:38 | XMS_ITS | Patient Health Record ---
Author Organization [facility] Address [address] [place] [phone] Care Team Providers Care Core Driller Helper Name Role Phone Ana Jarrell MD Primary Care Provider Deejay Mercado Unavailable [phone] Allergies No Known Allergies Reason For Referral [...] Status Risk Notes Problem Colon cancer screening (Z12.11) Active confirmed Problem 5879932 Diverticulitis o f large intestine without perforation or abscess without bleeding (K57.32) Active confirmed Problem Pre-procedure evaluation check (108786516) Encounter for other preprocedural examination (Z01.818) Active confirmed Vital Signs Temperature 98.0 degrees Fahrenheit 2024 Blood pressure diastolic 00 mm Hg 2024 Height 60 in 2024 Blood pressure systolic 000 mm Hg 2024 Weight 153 lb 2 oz lbs 2024 BMI 29.90 kg/m2 2024 Encounters Encounter Location Date Provider Diagnosis [facility] [address] [place] [phone] 2024 Deejay Bauman Colon cancer screeni Z12.11 [...] will be done with monitored anesthesia care. aNsrin was comfortable with this plan. Thank you again for allowing me to participate in Nasrin's care. I shall continue to keep you advised of her progress. Plan Of Treatment Future Test Test Name Order Date COLONOSCOPY 04/24/2014 COLONOSCOPY 2024 Next Appt Details Provider Name:Deejay Bauman , 03/27/2025 08:30:00 AM, [address] [place] [address] , [place], [place], [id number], Insurance Providers Payer Name Payer Address Payer Phone Subscriber Number Group Number Insured Name Patient Relationship to Insured Coverage Start Date Coverage End Date MEDICARE OF [place] [address] [place] [address] [phone] [id number] NASRIN SINGH Self - patient is the insured [employer] ATTN CLAIMS [address] [place] [phone] [id number] NASRIN SINGH Self - patient is the insured Medical (General) History Medical History History ICD Code Denies IA,DM,CVA,Lung disease,renal dise ase Hypertension Hypothyroidism Hyperlipidemia Neg. screening colonoscopy i n 07/2014 except for diverticulosis and internal hemorrhoids Sigmoid diverticulitis in 03/2017--treate d with outpatient antibiotics Melanoma on back Surgical History Surgery Date(Month/Year) cyst removed from breast-benign melanoma on back
--- OUTSIDE RECORDS SUMMARY | 2025-03-05 10:38 | XMS_ITS | Clinical Summary ---
Author Organization [facility] Address [address] [place] [address] Phone Care Team Providers Care Commercial Mortgage Broker Name Role Phone Ana Jarrell MD Primary Care Provider [phone] Surgical History Surgery Date Site/Laterality Comments BREAST [...] Signed Date: 10/08/2024 17:42 ET Workstation ID: [id number] Transcribed By: Self Edit Transcribed Date: 10/08/2024 [...] Signed Date: 10/08/2024 17:42 ET Workstation ID: [id number] Transcribed By: Self Edit Transcribed Date: 10/08/2024 17:33 ET us Self Referral Sppl IMG BI PROCEDURES Final Resul t * LUIS DEXA AXIAL SKELETON (09/08/2022 10:18 AM EST) Anatomical Region Laterality Modality Mammography 09/08/2022 9:24 AM EST Narrative 09/08/2022 10:18 AM EST [facility] Diagnostic Imaging Department [address] [place] [address] Patient: ??NASRIN CORREIA ?/Age/Sex: 1955 - 66 - F Unit#: ??[id number] ? Location/Status: ??SPDIMAM/REG CLI ? Mnemonic/Ordering Site: ??MAMDEXAAX/SPMAM Ordering Physician: ??WESTLEY WOLFE MD [facility] Dexa Axial Skeleton - 09/08/22 [...] probability of hip fracture of 0.7%. Code 20030 Dictating Physician: ??ARTEM CONWAY MD Electronically Signed by: ??ARTEM CONWAY MD Dic Date/Time: ??09/08/22 1017 Sign date/Time: ??09/08/22 1018 Procedure Note Artem Conway MD - 12/02/2023 [facility] Diagnostic Imaging Department [address] [place] [address] Patient: NASRIN CORREIA Kayode Ferro./Age/Sex: 1955 - 66 - F Unit#: [id number] Location/Status: [facility] Ordering Physician: WESTLEY WOLFE MD Luis Dexa [...] density of the femurs bilaterally is 1.144 gm/rt4kdqwa is 114% of that of young normals [...] probability of hip fracture of 0.7%. Code 42095 Dictating Physician: ARTEM CONWAY MD Electronically Signed by: ARTEM CONWAY MD Dic Date/Time: 09/08/22 1017 Sign date/Time: 09/08/22 1018 Westley Wolfe MD IMG BI PROCEDURES Final Result from Last 3 Months or Most Recently Relevant to Health Maintenance Insurance MEDICARE [facility] Care Teams Commercial Mortgage Broker Relationship Specialty Start Date End Date Ana Jarrell MD [address] [place] [address] PCP - General Internal Medicine 10/04/24
== END 2025-03-05 10:18 | disposition home or self-care (01) ==
LOC: HO.HMCC 09:36
PROVIDERS: PCP Internal Medicine; Visit Provider Internal Medicine
DX: Z00.00 Encounter for general adult medical examination without abnormal findings (principal); I10 Essential (primary) hypertension; E03.9 Hypothyroidism, unspecified; Z23 Encounter for immunization

== ENCOUNTER → 2025-03-05 09:35 | Outpatient (BNVA) | payer MEDICARE, SELFPAY | PROVIDERS: PCP Internal Medicine; Visit Provider Internal Medicine | DX: Z00.00 Encounter for general adult medical examination without abnormal findings (principal); Z23 Encounter for immunization; I10 Essential (primary) hypertension; E03.9 Hypothyroidism, unspecified | CPT/HCPCS: 90471; 90677; 96127 ==

== ENCOUNTER 2025-03-27 07:20 | Day surgery (SDC) | payer MEDICARE, SELFPAY ==
--- OUTSIDE RECORDS SUMMARY | 2025-02-19 14:12 | XMS_ITS ---
Author Organization [facility] Address [address] [place] [address] Care Team Providers Care Victorian Literature Professor Name Role Phone Ana Jarrell MD Primary Care Provider Deejay Mercado Unavailable [phone] Allergies No Known Allergies REASON FOR VISIT Patient presents today for a colonoscopy recall Medications Medication SIG (Take, Route, Frequency, Duration) Notes Start Date End Date Status Diclofenac Potassium 50 MG 1 tablet Orally Twice a day Not-Taking Crestor 5 MG 1 tablet Orally Once a day Active Synthroid 88 MCG 1 tablet every morni ng on an empty stomach Orally Once a day Active Lisinopril 20 MG 1 tablet Orally Once a day Active Vitamin D-3 25 MCG (1000 UT) 1 capsule Orally Once a day for 30 day(s) Active Immunizations Vaccine Route Administration Date Status Comme nts Influenza Unknown 2024 Refused Problems Problem Type SNOMED Code ICD Code Onset Dates Problem Status W/U Status Risk Notes Problem Colon cancer screening (580621044) Colon cancer screening (Z12.11) Active confirmed Problem Pre-procedure evaluation check (363442405) Encounter for other preprocedural examination (Z01.818) Active confirmed Vital Signs Temperature 98.0 degrees Fahrenheit 12/07/19 25 Blood pressure systolic 000 mm Hg 12/07/19 25 Blood pressure diastolic 00 mm Hg 025 Height 60 in 2024 Weight 153 lb 2 oz lbs 2024 BMI 29.90 kg/m2 2024 Encounters Encounter Location Date Provider Diagnosis [facility] [address] [place] [id number] 2024 Deejay Bauman Colon cancer screeni Z12.11 ; Diverticulitis of large intestine without perforation or abscess without bleeding K57.32 and Encounter for other preprocedural examination Z01.818 Assessments Encounter Date Diagnosis (ICD Code) Assessment Notes Treatment Notes Treatment Clinical Notes Section Notes 2024 Colon cancer screening (ICD-10 - Z12.11) Overall, Nasrin appears quite well. She is not having any new or worrisome GI complaints. It does appear that her previous history of diverticulitis has remained quiescent by keeping her bowel movements regular and avoiding constipation. I did advise her to continue using the MiraLax as needed and to stay on a healthy, high-fiber diet with plenty of fluids. I did recommend a colonoscopy for screening given her age, her clinical appearance, and her last exam being over 10 years ago. We did review the rationale for that in regard to colon cancer prevention. Full consent was obtained for this, including risks of bleeding and perforation. The procedure will be done with monitored anesthesia care. Nasrin was comfortable with this plan. Thank you again for allowing me to participate in Nasrin's care. I shall continue to keep you advised of her progress. 2024 Diverticulitis of large intestine without perforation or abscess without bleeding (ICD-10 - K57.32) Continue to stay on a high fiber and healthy diet with plenty of fluids, as well as using MiraLax as needed to avoid constipation Overall, Nasrin appears quite well. She is not having any new or worrisome GI complaints. It does appear that her previous history of diverticulitis has remained quiescent by keeping her bowel movements regular and avoiding constipation. I did advise her to continue using the MiraLax as needed and to stay on a healthy, high-fiber diet with plenty of fluids. I did recommend a colonoscopy for screening given her age, her clinical appearance, and her last exam being over 10 years ago. We did review the rationale for that in regard to colon cancer prevention. Full consent was obtained for this, including risks of bleeding and perforation. The procedure will be done with monitored anesthesia care. Nasrin was comfortable with this plan. Thank you again for allowing me to participate in Nasrin's care. I shall continue to keep you advised of her progress. 2024 Encounter for other preprocedural examination (ICD-10 - Z01.818) Overall, Nasrin appears quite well. She is not having any new or worrisome GI complaints. It does appear that her previous history of diverticulitis has remained quiescent by keeping her bowel movements regular and avoiding constipation. I did advise her to continue using the MiraLax as needed and to stay on a healthy, high-fiber diet with plenty of fluids. I did recommend a colonoscopy for screening given her age, her clinical appearance, and her last exam being over 10 years ago. We did review the rationale for that in regard to colon cancer prevention. Full consent was obtained for this, including risks of bleeding and perforation. The procedure will be done with monitored anesthesia care. Nasrin was comfortable with this plan. Thank you again for allowing me to participate in Nasrin's care. I shall continue to keep you advised of her progress. Plan Of Treatment Treatment Notes Assessment Notes Diverticulitis of large inte marlon without perforation or abscess without bleeding Continue to stay on a high fiber and healthy diet with plenty of fluids, as well as using MiraLax as needed to avoid constipation Future Test Test Name Order Date COLONOSCOPY 2024 Next Appt Details Follow Up: prn, Reason: Provider Name:Deejay Bauman , 03/27/2025 08:30:00 AM, [address] [place] [address], [id number], Progress Notes * CURTIS CORREIAEDOB:[birth year] (69 yo F)Acc No.[id number]:2024 Progress Notes Patient:?NASRIN CORREIA Provider:?Deejay Bauman MD :1955???Age:69 Y???Sex:Female D ate:2024 Address: [address] [id number] Pcp:Ana Jarrell MD Subjective: * Chief Complaints: * ???Patient presents today fo r a colonoscopy recall * HPI: ???incontinence:? I saw Nasrin in consultation today in regard to further evaluation of her underlying history of diverticulitis, constipation, and discussion of colorectal cancer screening. ?I last saw Nasrin in 2017, at which time we had reviewed her previous history of diverticulitis. At that time she was feeling well. Since I saw her she reports that as long as she keeps her bowel movements regular with the help of occasional MiraLax things have remained stable in regard to the diverticulitis. She does have occasional symptoms of constipation which resolve readily with p.r.n. MiraLax. She has not had any diverticulitis for which she has needed antibiotics. She does describe taking occasional dicyclomine for abdominal cramps. She reports that her bowel movements are otherwise regular and without any signs of bleeding. She has not had a colonoscopy since the negative exam in 2014. She denies any known family history of colon cancer. She enjoys a good appetite and denies any significant heartburn or dysphagia. She denies any abdominal pain, jaundice, nor unintentional weight loss. She denies any known family history of colorectal cancer. * ROS:?General/Constitutional:?Change in appetite?denies.?Chills?denies.?Fatigue?denies.?Ophthalmologic:?Comments?all negative.?ENT:?Comments?all negative.?Respiratory:?hemoptysis?denies.?Cough?denies.?Cardiovascular:?Chest pain?denies.?Orthopnea?denies.?Gastrointestinal:?Comments?See HPI for details.?Genitourinary:?Hematuria?denies.?Dysuria?denies.?Musculoskeletal:?Painful joints?denies.?Weakness?denies.?Skin:?Itching?denies.?Rash?denies.?Neurologic:?Headache?denies.?Seizures?denies.?Psychiatric:?Comments?all negative.? * Medical History:? * Surgical History:?cyst remov ed from breast-benign melanoma on back * Hospitalization/Major Diagno stic Procedure:?No Hospitalization History. * Family History:?Father: dece ased, diagnosed with HTN (hypertension).?Mother: , diagnosed with HTN (hypertension).? No colorectal cancer. No family history of liver cancer. * Social History:?Tobacco Use:?Tobacco Use/Smoking?Are you a: nonsmoker.?Drugs/Alcohol:?Alcohol Screen?Points: 1, Interpretation: Negative.?Miscellaneous:?Marital status: . 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 ???Nonsmoker; no sig alcohol. * Medications:?TakingVitamin D -3 25 MCG (1000 UT) Capsule 1 capsule Orally Once a dayLisinopril 20 MG Tablet 1 tablet Orally Once a daySynthroid 88 MCG Tablet 1 tablet every morning on an empty stomach Orally Once a dayCrestor 5 MG Tablet 1 tablet Orally Once a dayTaking Vitamin D-3 25 MCG (1000 UT) Capsule 1 capsule Orally Once a dayTaking Lisinopril 20 MG Tablet 1 tablet Orally Once a dayTaking Synthroid 88 MCG Tablet 1 tablet every morning on an empty stomach Orally Once a dayTaking Crestor 5 MG Tablet 1 tablet Orally Once a dayNot-Taking/PRNDiclofenac Potassium 50 MG Tablet 1 tablet Orally Twice a dayNot-Taking/PRN Diclofenac Potassium 50 MG Tablet 1 tablet Orally Twice a dayDiscontinuedFlagyl 500 MG Tablet 1 tablet Orally every 8 hrsCipro 500 MG Tablet 1 tablet Orally Twice a dayMedication List reviewed and reconciled with the patientDiscontinued Flagyl 500 MG Tablet 1 tablet Orally every 8 hrsDiscontinued Cipro 500 MG Tablet 1 tablet Orally Twice a dayMedication List reviewed and reconciled with the patient * Allergies:?N.K.D.A.yes[Aller gies Verified] Objective: * Vitals:?Wt: 153 lb 2 oz, Ht: 60 in, BMI:29.90 Index, BP: 000/00 mm Hg, Temp: 98.0. * Examination: ???General Examination: ?GENERAL APPEARANCE:?pleasant, well nourished, well developed, in no acute distress.?EYES:?sclera non-icteric.?ORAL CAVITY:?mucosa moist.?NECK/THYROID:?no cervical lymphadenopathy, neck supple.?SKIN:?nonjaundiced, no spider angiomata.?HEART:?S1, S2 normal.?LUNGS:?clear to auscultation bilaterally.?ABDOMEN:?normal bowel sounds, no guarding or rigidity, no guarding or rigidity, no masses palpable, soft, nontender, nondistended.?EXTREMITIES:?no edema.?NEUROLOGIC:?alert and oriented.? Assessment: * Assessment: 1.?Diverticulitis of large i ntestine without perforation or abscess without bleeding - K57.32 (Primary)?2.?Colon cancer screening - Z12.11?3.?Encounter for other preprocedural examination - Z01.818? Overall, Nasrin appears quit e well. She is not having any new or worrisome GI complaints. It does appear that her previous history of diverticulitis has remained quiescent by keeping her bowel movements regular and avoiding constipation. I did advise her to continue using the MiraLax as needed and to stay on a healthy, high-fiber diet with plenty of fluids. I did recommend a colonoscopy for screening given her age, her clinical appearance, and her last exam being over 10 years ago. We did review the rationale for that in regard to colon cancer prevention. Full consent was obtained for this, including risks of bleeding and perforation. The procedure will be done with monitored anesthesia care. Nasrin was comfortable with this plan. Thank you again for allowing me to participate in Nasrin's care. I shall continue to keep you advised of her progress. Plan: * Treatment: 2.?Colon cancer screening?Procedure: COLONOSCOPY (Ordered for 2024) * Immunizations:? Influenza (Not administered - Refused: Patient decision) * Procedure Codes:?3017F COLOR ECTAL CA SCREEN DOC [id number] TOBACCO [id number] BP SCR NOT PRFRM REC REASON NOS * Preventive Medicine:? ??Counseling:?Care goal follow-up plan:?Above Normal BMI Follow-up?Giving encouragement to exercise,?BMI management provided?Yes.? ??Urinary Incontinence:?Urinary Incontinence?Assessment:?Absent,?Plan of care documented:?No, reason not specified.? ??Screenings:?Fall Risk Screening?Fall Risk Assessment:?No falls in the past year,?Screening:?No falls in the past year,?Assessment:?Not performed, no reason specified,?Plan of Care:?Not documented, no reason specified.? * Follow Up:?prn * * Sign off status: Completed true * Provider:?Deejay Bauman MD Date:? 025 Generated for Aranza scott/Chun/Ambika on:?02/19/2025 02:11 PM EDT History and Physical Notes * HPI (History of Present Illness) Category Sub-Category Detail Notes Category Not es incontinence I saw Nasrin in consultation today in regard to further evaluation of her underlying history of diverticulitis, constipation, and discussion of colorectal cancer screening. I last saw Nasrin in 2017, at which time we had reviewed her previous history of diverticulitis. At that time she was feeling well. Since I saw her she reports that as long as she keeps her bowel movements regular with the help of occasional MiraLax things have remained stable in regard to the diverticulitis. She does have occasional symptoms of constipation which resolve readily with p.r.n. MiraLax. She has not had any diverticulitis for which she has needed antibiotics. She does describe taking occasional dicyclomine for abdominal cramps. She reports that her bowel movements are otherwise regular and without any signs of bleeding. She has not had a colonoscopy since the negative exam in 2014. She denies any known family history of colon cancer. She enjoys a good appetite and denies any significant heartburn or dysphagia. She denies any abdominal pain, jaundice, nor unintentional weight loss. She denies any known family history of colorectal cancer. Examination Category Sub-Category Detail Notes Category Not es General Examination GENERAL APPEARANCE: pleasant , well nourished, well developed, in no acute distress HEAD: EYES: sclera non-icteric EARS: NOSE: THROAT: NECK/THYROID: no cervical lymphade nopathy, neck supple HEART: S1, S2 normal CHEST: LUNGS: clear to auscultatio n bilaterally ABDOMEN: normal bowel sounds, no guarding or rigidity, no guarding or rigidity, no masses palpable, soft, nontender, nondistended NEUROLOGIC: alert and oriented SKIN: nonjaundiced, no spi aquiles angiomata EXTREMITIES: no edema PERIPHERAL PULSES: BACK: BREASTS: MUSCULOSKELETAL: MALE GENITOURINARY: LYMPH NODES: RECTAL EXAM: FEMALE GENITOURINARY: ORAL CAVITY: mucosa moist
--- OUTSIDE RECORDS SUMMARY | 2025-02-19 14:12 | XMS_ITS | Patient Health Record ---
Author Organization [facility] Address [address] [place] [address] Care Team Providers Care [place] Utility Worker Name Role Phone Ana Jarrell MD Primary Care Provider Deejay Mercado Unavailable [phone] Allergies No Known Allergies Reason For Referral No Information Medications Medication SIG (Take, Route, Frequency, Duration) Notes Start Date End Date Status Diclofenac Potassium 50 MG 1 tablet Orally Twice a day Not-Taking Crestor 5 MG 1 tablet Orally Once a day Active Lisinopril 20 MG 1 tablet Orally Once a day Active Vitamin D-3 25 MCG (1000 UT) 1 capsule Orally Once a day for 30 day(s) Active Synthroid 88 MCG 1 tablet every morni ng on an empty stomach Orally Once a day Active Immunizations Vaccine Route Administration Date Status Comme nts Influenza Unknown 2024 Refused Problems Problem Type SNOMED Code ICD Code Onset Dates Problem Status W/U Status Risk Notes Problem Colon cancer screening (317057561) Colon cancer screening (Z12.11) Active confirmed Problem 9330369 Diverticulitis o f large intestine without perforation or abscess without bleeding (K57.32) Active confirmed Problem Pre-procedure evaluation check (996096146) Encounter for other preprocedural examination (Z01.818) Active confirmed Vital Signs Temperature 98.0 degrees Fahrenheit 2024 Blood pressure diastolic 00 mm Hg 2024 Height 60 in 2024 Blood pressure systolic 000 mm Hg 2024 Weight 153 lb 2 oz lbs 2024 BMI 29.90 kg/m2 2024 Encounters Encounter Location Date Provider Diagnosis [facility] [address] [place] [address] 2024 Deejay Bauman Colon cancer screeni ng Z12.11 ; Diverticulitis of large intestine without [...] advised of her progress. Plan Of Treatment Future Test Test Name Order Date COLONOSCOPY 04/24/2014 COLONOSCOPY 2024 Next Appt Details Provider Name:Deejay Bauman , 03/27/2025 08:30:00 AM, [address] [place] [address] , [place], [place], [id number], Insurance Providers Payer Name Payer Address Payer Phone Subscriber Number Group Number Insured Name Patient Relationship to Insured Coverage Start Date Coverage End Date MEDICARE OF [place] [address] [place] [phone] [id number] NASRIN SINGH Self - patient is the insured [employer] ATT[employer] CLAIMS [address] [place] [address] [id number] NASRIN SINGH Self - patient is the insured Medical (General) History Medical History History ICD Code Denies SC,DM,CVA,Lung disease,renal dise ase Hypertension Hypothyroidism Hyperlipidemia Neg. screening colonoscopy i n 07/2014 except for diverticulosis and internal hemorrhoids Sigmoid diverticulitis in 03/2017--treate d with outpatient antibiotics Melanoma on back Surgical History Surgery Date(Month/Year) cyst removed from breast-benign melanoma on back
--- OUTSIDE RECORDS SUMMARY | 2025-02-19 14:12 | XMS_ITS | Clinical Summary ---
Author Organization [facility] Address [address] [place] [address] Phone Care Team Providers Care Agricultural Purchasing Agent Name Role Phone Ana Jarrell MD Primary Care Provider Surgical History Surgery Date Site/Laterality Comments BREAST CYST EXCISION 10/31/1977 - 10/30/1978 Left Family History Medical History Relation Name Comments Breast cancer Maternal Grandmother Relation Name Status Comments Maternal Grandmother Social History Tobacco Use Types Packs/Day Years Used Date Smoking Tobacco: Never Assessed Comments No Sex and Gender Information Value Date Recorded Sex Assigned at Female 10/04/2024 4:11 PM EST Legal Sex Female 10:07 AM EST Gender Identity Female 10/04/2024 4:11 PM EST Sexual Orientation Straight 10/04/2024 4: 11 PM EST Obstetrics History Para Term AB IAB SAB Ectopic Multiple Livin g Live Births 2 Last Filed Vital Signs Vital Sign Reading Time Taken Comments Blood Pressure - - Pulse - - Temperature - - Respiratory Rate - - Oxygen Saturation - - Inhaled Oxygen Concentration - - Weight 68 kg (150 lb) 10/08/2024 11:04 AM EST Height 149.9 cm (4' 11 ) 10/08/2024 11:04 AM EST Body Mass Index 30.3 10/08/2024 11:04 AM EST Plan of Treatment Health Maintenance Due Date Last Done Comments DTaP,Tdap,and Td Vaccines (1 - Tdap) 1972 Pneumococcal Vaccine: 50+ Years (1 of 1 - PCV) 2003 Colorectal Cancer Screening: Colonoscopy 09/28/2022 Depression Screening 09/28/2022 Falls Risk Assessment 09/28/2022 Hepatitis C Screening 09/28/2022 Medicare Annual Wellness Visit 09/28/2022 Social Influencers of Health Screening 09/28/2022 COVID-19 Vaccine ( season) 2024 08/30/2022, 08/14/2021, 01/31/2021, Additional history exists Influenza Vaccine (Season Ended) 2025 08/18/2023, 08/25/2022, 08/25/2020 Breast Cancer Screening 10/08/2026 10/08/20 24, 10/05/2023, 09/08/2022, Additional history exists RSV Immunization Adult Patients (1 - 1-dose 75+ series) 2028 Osteoporosis Screening (Bone Density Screening) 09/08/2032 09/08/2022 Zoster Vaccines Completed 11/25/2023, 03/2023, 03/30/2017 HIB Vaccines Aged Out No longer eligi ble based on patient's age to complete this topic HPV Vaccines Aged Out No longer eligi ble based on patient's age to complete this topic Hepatitis A Vaccines Aged Out No long er eligible based on patient's age to complete this topic Hepatitis B Vaccines Aged Out No long er eligible based on patient's age to complete this topic IPV Vaccines Aged Out No longer eligi ble based on patient's age to complete this topic MMR Vaccines Aged Out No longer eligi ble based on patient's age to complete this topic Meningococcal ACWY Vaccine Aged Out N o longer eligible based on patient's age to complete this topic Meningococcal B Vaccine Aged Out No l onger eligible based on patient's age to complete this topic RSV Immunization Patients Under 20 months Aged Out No longer eligible based on patient's age to complete this topic Varicella Vaccines Aged Out No longer eligible based on patient's age to complete this topic Procedures Procedure Name Priority Date/Time Associated Diagnosis Comments MG MAMMO DIGITAL SCREENING W BALJINDER BILAT Routine 10/08/2024 11:14 AM EST Encounter for screening mammogram for breast cancer LUIS DEXA AXIAL SKELETON Routine 09/08/2022 10:18 AM EST Encounter for screening for osteoporosis from Last 3 Months or Most Recently Relevant to Health Maintenance Results * MG Mammo Digital Screening w Baljinder bilat (10/08/2024 11:14 AM EST) Anatomical Region Laterality Modality Breast Bilateral Mammography 10/08/2024 5:33 PM EST Impressions 10/08/2024 5:42 PM EST No mammographic evidence of malignancy. ?? No suspicious interval change. A negative mammogram in the presence of a clinically suspicious palpable abnormality does not preclude the possibility of malignancy or alter the indications for biopsy. ASSESSMENT: ?? BI-RADS 1: NEGATIVE RECOMMENDATION(S): 1: Routine screening mammogram BILATERAL in 1 year. -------- FINAL REPORT -------- Dictated By: Avelino Scales Dictated Date: 10/08/2024 17:33 ET Assigned Physician: Avelino Scales Reviewed and Electronically Signed By: Avelino Scales Signed Date: 10/08/2024 17:42 ET Workstation ID: [id number] Transcribed By: Self Edit Transcribed Date: 10/08/2024 17:33 ET Narrative 10/08/2024 5:42 PM EST EXAM: ??SCREENING MAMMOGRAPHY, BILATERAL HISTORY: ??SCREENING. ??Scar from cyst removal 3 o'clock left breast 1977. ??Maternal grandmother with history of breast cancer. COMPARISON: ??10/05/2023, 09/08/2022, 09/04/2021, 09/01/2020 TECHNIQUE: Synthesized CC and MLO projections of each breast. ??Tomosynthesis of each breast in the CC and MLO projections. ADDITIONAL IMAGING: None Computer-aided detection was employed with the iCAD ??profound AI 3-D. TISSUE DENSITY: The breasts are heterogeneously dense, which may obscure small masses. (BI-RADS category C) FINDINGS: RIGHT BREAST: No suspicious mass. No suspicious calcification. No distortion. ?? No additional suspicious right breast findings LEFT BREAST: No suspicious mass. No suspicious calcification. No distortion. ?? No additional suspicious left breast findings Procedure Note Avelino Scales MD - 10/08/2024 EXAM: SCREENING MAMMOGRAPHY, BILATERAL HISTORY: SCREENING. Scar from cyst removal 3 o'clock left breast 1977.Maternal grandmother with history of breast cancer. COMPARISON: 10/05/2023, 09/08/2022, 09/04/2021, 09/01/2020 TECHNIQUE: Synthesized CC and MLO projections of each breast.Tomosynthesis of each breast in the CC and MLO projections. ADDITIONAL IMAGING: None Computer-aided detection was employed with the iCAD profound AI 3-D. TISSUE DENSITY: The breasts are heterogeneously dense, which may obscuresmall masses. (BI-RADS category C) FINDINGS: RIGHT BREAST: No suspicious mass. No suspicious calcification. No distortion. Noadditional suspicious right breast findings LEFT BREAST: No suspicious mass. No suspicious calcification. No distortion. Noadditional suspicious left breast findings IMPRESSION: No mammographic evidence of malignancy. No suspicious interval change. A negative mammogram in the presence of a clinically suspicious palpableabnormality does not preclude the possibility of malignancy or alter theindications for biopsy. ASSESSMENT: BI-RADS 1: NEGATIVE RECOMMENDATION(S): 1: Routine screening mammogram BILATERAL in 1 year. -------- FINAL REPORT -------- Dictated By: Avelino Scales Dictated Date: 10/08/2024 17:33 ET Assigned Physician: Avelino Scales Reviewed and Electronically Signed By: Avelino Scales Signed Date: 10/08/2024 17:42 ET Workstation ID: [id number] Transcribed By: Self Edit Transcribed Date: 10/08/2024 17:33 ET us Self Referral Sppl IMG BI PROCEDURES Final Resul t * LUIS DEXA AXIAL SKELETON (09/08/2022 10:18 AM EST) Anatomical Region Laterality Modality Mammography 09/08/2022 9:24 AM EST Narrative 09/08/2022 10:18 AM EST [facility] Diagnostic Imaging Department [address] [place] [address] Patient: ??NASRIN CORREIA ?/Age/Sex: 1955 - 66 - F Unit#: ??[id number] ? Location/Status: ??SPDIMAM/REG CLI ? Mnemonic/Ordering Site: ??MAMDEXAAX/SPMAM Ordering Physician: ??WESTLEY WOLFE MD [facility] Dexa Axial Skeleton - 09/08/22 - HISTORY: ??The patient is a 66-year-old postmenopausal female with clinical concern for metabolic bone disease. FINDINGS: ??Dual energy x-ray absorptiometry of the lumbar spine and femurs is performed. The mean bone mineral density at L1-2 is 1.413 gm/cm2 which is 121% of that of young normals and 144% of that of age matched controls. This yields a T-score of 2.1 and a Z-score of 3.6 and there is therefore no evidence of osteoporosis or osteopenia here. The mean bone mineral density of the femurs bilaterally is 1.144 gm/cm2 which is 114% of that of young normals and 136% of that of age matched controls. ??This yields a T-score of 1.1 and a Z-score of 2.4 and there is therefore no evidence of osteoporosis or osteopenia here. IMPRESSION: 1. There is no evidence of osteoporosis or osteopenia. ??There has been an increase of 6.7% in bone mineral density in the lumbar spine since the prior examination of 06/02/2017. ??There has been an increase of 2.3% in bone mineral density in the right femur and an increase of 1.3% in bone mineral density in the left femur. 2. FRAX analysis yields a 10-year probability of major osteoporotic fracture of 11.3% and a 10-year probability of hip fracture of 0.7%. Code 12162 Dictating Physician: ??ARTEM CONWAY MD Electronically Signed by: ??ATREM CONWAY MD Dic Date/Time: ??09/08/22 1017 Sign date/Time: ??09/08/22 1018 Procedure Note Artem Conway MD - 12/02/2023 [facility] Diagnostic Imaging Department [address] [place] [id number] Patient: NASRIN CORREIA Kayode Ferro./Age/Sex: 1955 - 66 - F Unit#: [id number] Location/Status: [facility] Mnemonic[facility] Ordering Physician: WESTLEY WOLFE MD [facility] Dexa Axial Skeleton - 09/08/22 - HISTORY: The patient is a 66-year-old postmenopausal female withclinical concern for metabolic bone disease. FINDINGS: Dual energy x-ray absorptiometry of the lumbar spine and femursis performed. The mean bone mineral density at L1-2 is 1.413 gm/cm2 which is121% of that of young normals and 144% of that of age matched controls. Thisyields a T-score of 2.1 and a Z-score of 3.6 and there is therefore no evidenceof osteoporosis or osteopenia here. The mean bone mineral density of the femurs bilaterally is 1.144 gm/xw0gnigs is 114% of that of young normals and 136% of that of age matched controls.This yields a T-score of 1.1 and a Z-score of 2.4 and there is therefore noevidence of osteoporosis or osteopenia here. IMPRESSION: 1. There is no evidence of osteoporosis or osteopenia. There has beenan increase of 6.7% in bone mineral density in the lumbar spine since theprior examination of 06/02/2017. There has been an increase of 2.3% in bonemineral density in the right femur and an increase of 1.3% in bone mineral densityin the left femur. 2. FRAX analysis yields a 10-year probability of major osteoporoticfracture of 11.3% and a 10-year probability of hip fracture of 0.7%. Code 49313 Dictating Physician: ARTEM CONWAY MD Electronically Signed by: ARTEM CONWAY MD Dic Date/Time: 09/08/22 1017 Sign date/Time: 09/08/22 1018 Westley Wolfe MD IMG BI PROCEDURES Final Result from Last 3 Months or Most Recently Relevant to Health Maintenance Insurance MEDICARE [facility] Care Teams Agricultural Purchasing Agent Relationship Specialty Start Date End Date Ana Jarrell MD [address] [place] [address] PCP - General Internal Medicine 10/04/24
[2025-03-22 10:52] VITALS: BMI 29.9
--- NOTE | 2025-03-26 09:46 | P.CONAN_ITS ---
Documented by User: Henrietta Mendez NP 03/26/25 09:47 HPI - Anesthesia Eval Consult details Narrative: 69yo F for Colonoscopy PMFSH Active Problems Active Problems: All Active Problems Elbow pain, left (Acute) Annual physical exam (Acute) Vitamin D deficiency (Acute) Anemia (Acute) Normal Pap smear (Acute) Mammogram normal (Acute) Normal colonoscopy (Acute) HTN (hypertension) (Acute) Hypothyroidism (Acute) Hyperlipidemia (Acute) Past Medical History Medical History (Updated 03/22/25 @ 10:57 by Jessika Flor RN) Diverticulitis Hyperlipidemia Skin cancer Hypothyroidism HTN (hypertension) Family History Family History Father Angina pectoris Cancer Mother No problems noted. Maternal Grandmother Breast CA Brother Cancer Brother Skin cancer Brother Multiple sclerosis Son Testicular cancer Daughter Asthma Surgical History Surgical History (Updated 03/22/25 @ 10:55 by Jessika Flor RN) Hx of excision of mass Hx of excision of mass H/O colonoscopy Social History Social History Household Members Other:: , boyfriend, 2 children, 3 grandchildren Housing: House Alcohol intake: current Alcohol intake frequency: holidays/special occasions only Patient Tobacco Use Status: Former Tobacco user Years Smoked: 10 e-Cigarette/Vaping Use: Never Used Second Hand Smoke Exposure: No Use of substances other than those prescribed or required for medical reasons: No Have you been hit, kicked, punched, or otherwise hurt by someone within the past year? If so, by whom?: No Are you DNR?: No Advance Directives: No Advance Directives Information Provided: Yes Advance Directives on File: No Patient : No : No Poor oral hygiene: No service: No Current occupational status: retired Cognitive needs: No Hearing needs: No Vision needs: No Meds Allergies Allergy/AdvReac Type Severity Reaction Status Date / Time No Known Allergies Allergy Verified 03/05/25 09:47 Exam Height,Weight and Vital Signs: Height 5 ft Weight 69.4 kg Assessment and Plan Assessment Anesthesia Assessment: Chart Reviewed Documented by User: Willie Mora MD 03/27/25 08:57 [facility] Past Medical History Medical History (Updated 03/22/25 @ 10:57 by Jessika Flor, JAMEEL) Diverticulitis Hyperlipidemia Skin cancer Hypothyroidism HTN (hypertension) Family History Family History Father Angina pectoris Cancer Mother No problems noted. Maternal Grandmother Breast CA Brother Cancer Brother Skin cancer Brother Multiple sclerosis Son Testicular cancer Daughter Asthma Family history of problems with anesthesia: No Surgical History Surgical History (Updated 03/22/25 @ 10:55 by Jessika Flor RN) Hx of excision of mass Hx of excision of mass H/O colonoscopy History of Problems with Anesthesia: No Social History Social History Household Members Other:: , boyfriend, 2 children, 3 grandchildren Housing: House Alcohol intake: current Alcohol intake frequency: holidays/special occasions only Patient Tobacco Use Status: Former Tobacco user Years Smoked: 10 e-Cigarette/Vaping Use: Never Used Second Hand Smoke Exposure: No Use of substances other than those prescribed or required for medical reasons: No Have you been hit, kicked, punched, or otherwise hurt by someone within the past year? If so, by whom?: No Are you DNR?: No Advance Directives: No Advance Directives Information Provided: Yes Advance Directives on File: No Patient : No : No Poor oral hygiene: No service: No Current occupational status: retired Cognitive needs: No Hearing needs: No Vision needs: No Meds Allergies Allergy/AdvReac Type Severity Reaction Status Date / Time No Known Allergies Allergy Verified 03/05/25 09:47 Exam Airway Mallampati Class: II TM Dist: <=3cm Neck ROM: Full Denture: Upper Heart: ok Lungs: ok Assessment and Plan Final Anesthetic Review Family History of Problems with Anesthesia: No History of Problems with Anesthesia: No NPO: Yes ASA Class: II Final Preanesthetic Review: No Changes in Pt Med Stat, Meds/Allgs Chart Reviewed, Consent Obtained/Reviewed and Anes Risks/Benef Reviewed Patient Risk: Intermediate Procedure Risk: Low Anesthetic Plan Anesthetic Plan: MAC: and Agree w/ Assess. and Plan Disposition: Standard PACU
[2025-03-27 07:44] VITALS: BP 142/62; PULSE 86; RESP 16; TEMP 36.1; O2SAT 97
[2025-03-27] MEDS: Lactated Ringers 1,000 ML 100 ML IVCONT (07:52)
[2025-03-27 09:19] VITALS: BP 84/45; PULSE 67; RESP 18; TEMP 36.1; O2SAT 95
--- NOTE | 2025-03-27 09:21 | PM.OP ---
Brief Operative Note Date of Service: 03/27/25 Pre-op diagnosis: Screening Post-op diagnosis: other (Diverticulosis) Procedure: Colonoscopy to the cecum and TI Surgeon: Deejay Bauman MD Anesthesia: MAC Was an Wireless Operator used for this Procedure?: No Estimated blood loss (mL): 0 Pathology: none sent Condition: stable Disposition: PACU
[2025-03-27 09:34] VITALS: BP 120/60; PULSE 66; RESP 16; TEMP 36.1; O2SAT 99
--- NOTE | 2025-04-04 14:03 | OP_ITS ---
DATE OF SERVICE: 03/27/2025 SURGEON: Deejay Bauman MD INDICATIONS: The patient presents for evaluation of colorectal cancer screening. Full consent has been obtained from her for this, including risks of bleeding and perforation. PREOPERATIVE DIAGNOSIS: Colorectal cancer screening. POSTOPERATIVE DIAGNOSIS: PROCEDURE PERFORMED: Colonoscopy to the cecum and terminal ileum. ESTIMATED BLOOD LOSS: COMPLICATIONS: ANESTHESIA: Monitored anesthesia care. ASSISTANTS: SPECIMENS: POSTOPERATIVE DIAGNOSES: Colorectal cancer screening, diverticulosis, and internal hemorrhoids. DESCRIPTION OF PROCEDURE: The patient was placed in the left lateral decubitus position. The digital rectal exam revealed no abnormalities. The Olympus video pediatric colonoscope was entered into the rectum and advanced easily to the cecum. Once in the cecum, I did identify normal-appearing cecal pouch with appendiceal orifice and a normal-appearing ileocecal valve. The terminal ileum was cannulated and appeared normal. The scope was withdrawn back in the colon. The entire cecum and ileocecal valve appeared normal. The scope was slowly withdrawn assessing all mucosal surfaces carefully. Preparation was excellent. I did not visualize any sign of polyps, colitis, nor angiodysplasia. There was a mild amount of sigmoid diverticulosis. In the rectum, scope was retroflexed visualizing internal hemorrhoids, but no other pathology. The rectal mucosa appeared normal. The scope was straightened and withdrawn from the patient. She tolerated the procedure well and was returned to the recovery area in stable condition. IMPRESSION: 1. Diverticulosis. 2. Internal hemorrhoids. PLAN: Given today's negative exam and her age, I do not think, she would need any further screening colonoscopies. She will otherwise see me on a p.r.n. basis. She was advised to continue her dicyclomine as needed for abdominal cramps. She was advised to stay on a high-fiber diet and use MiraLAX to keep her bowel movements regular as well. She will see me again as needed. MD DELMY Khan/GABBY / [phone]
== END 2025-03-27 10:13 | disposition home or self-care (01) ==
PROVIDERS: PCP Internal Medicine; Visit Provider Internal Medicine
PROC: 0DJD8ZZ Inspection of Lower Intestinal Tract, Via Natural or Artificial Opening Endoscopic (ICD-10-PCS; CPT 45378; principal; 2025-03-27 08:30)
DX: Z12.11 Encounter for screening for malignant neoplasm of colon (principal); K57.30 Diverticulosis of large intestine without perforation or abscess without bleeding; K64.8 Other hemorrhoids; Z79.899 Other long term (current) drug therapy; Z87.19 Personal history of other diseases of the digestive system; K59.00 Constipation, unspecified; I10 Essential (primary) hypertension; E03.9 Hypothyroidism, unspecified; E78.5 Hyperlipidemia, unspecified; Z85.820 Personal history of malignant melanoma of skin; Z87.891 Personal history of nicotine dependence; Z98.890 Other specified postprocedural states
CPT/HCPCS: G0121; J2003; J2704

== ENCOUNTER 2025-08-14 09:30 | Outpatient (REF) | payer MEDICARE, SELFPAY ==
--- OUTSIDE RECORDS SUMMARY | 2025-03-27 04:30 | XMS_ITS ---
Author Organization [facility] Address [address] [place] [address] Care Team Providers Care Autobody Technician Name Role Phone Ana Jarrell MD Primary Care Provider Deejay Mercado [phone] REASON FOR VISIT screening Encounters Encounter Location Date Provider Diagnosis [facility] Out[facility] [address] [place], [place] [id number] 03/27/2025 Deejay Bauman Colon cancer scree yulissa Z12.11 ; Diverticulosis of sigmoid colon K57.30 and Internal hemorrhoids K64.8 Assessments Encounter Date Diagnosis (ICD Code) Assessment Notes Treatment Notes Treatment Clinical Notes Section Notes 03/27/2025 Colon cancer screening (ICD-10 - Z12.11) 03/27/2025 Diverticulosis of sigmoid colon (ICD-10 - K57.30) 03/27/2025 Internal hemorrhoids (ICD-10 - K64.8) Plan Of Treatment No Information Progress Notes * TEJINDER CORREIAOB:[birth year] (69 yo F)Acc No.[id number]:03/27/2025 COLON WITH MAC Patient: CHRISS WILSON Provider: Uzair Bauman MD :1955 A ge:69 Y S ex:Female Date:03/27/2025 Address: [address] [facility] Pcp:Ana Jarrell MD Subjective: * Chief Complaints: * 1 . Screening. * Medical History: Objective: * Vitals: Assessment: * Assessment: 1. C olon cancer screening - Z12.11 (Primary) 2 . D iverticulosis of sigmoid colon - K57.30 3 . I nternal hemorrhoids - K64.8 Plan: * Treatment: * Procedure Codes: G 0121 COLOREC CNCR SCR;COLNSCPY NO HI RSK, 0529F INTRVL 3+YRS PTS CLNSCP DOCD, 0528F RCMND FLW-UP 10 YRS DOCD, Modifiers: 1P * * The named appointment provid er may or may not be the originator of this progress note, and it is not deemed complete until electronically signed by the appointment provider. Sign off status: Pending * Provider: Uzair Bauman MD Date: 0 03/27/2025 Generated for Aranza scott/Chun/Ramyitting on: 1 10:54 AM EDT
--- OUTSIDE RECORDS SUMMARY | 2025-08-14 10:54 | XMS_ITS | Clinical Summary ---
Author Organization [facility] Address [address] [place] [address] Phone Care Team Providers Care Skoog Patching Machine Operator Name Role Phone Ana aJrrell MD Primary Care Provider [phone] Surgical History Surgery Date Site/Laterality Comments BREAST [...] Health Maintenance Due Date Last Done Comments Colorectal Cancer Screening: Colonoscopy 1955 DTaP,Tdap,and Td Vaccines (1 - Tdap) 1972 Pneumococcal Vaccine: 50+ Years (1 of 1 - PCV) 2003 Falls Risk Assessment 09/28/2022 Hepatitis C Screening 09/28/2022 Medicare Annual Wellness Visit 09/28/2022 Social Influencers of Health Screening 09/28/2022 Depression Screening 10/31/2024 COVID-19 Vaccine ( season) 2025 08/30/2022, 08/14/2021, 01/31/2021, Additional history exists Influenza Vaccine (#1) 2025 3, 08/25/2022, 08/25/2020 Breast Cancer Screening 10/08/2026 10/08/20 [...] PM EST No mammographic evidence of malignancy. No suspicious interval change. A negative mammogram in the presence of a clinically suspicious palpable abnormality does not preclude the possibility of malignancy or alter the indications for biopsy. ASSESSMENT: BI-RADS 1: NEGATIVE RECOMMENDATION(S): 1: Routine screening mammogram BILATERAL in 1 year. -------- FINAL REPORT -------- Dictated By: Avelino Scales Dictated Date: 10/08/2024 17:33 ET Assigned Physician: Avelino Scales Reviewed and Electronically Signed By: Avelino Scales Signed Date: 10/08/2024 17:42 ET Workstation ID: [id number] Transcribed By: Self Edit Transcribed Date: 10/08/2024 17:33 ET Narrative 10/08/2024 5:42 PM EST EXAM: SCREENING MAMMOGRAPHY, BILATERAL HISTORY: SCREENING. Scar from cyst removal 3 o'clock left breast 1977. Maternal grandmother with history of breast cancer. COMPARISON: 10/05/2023, 09/08/2022, 09/04/2021, 09/01/2020 TECHNIQUE: Synthesized CC and MLO projections of each breast. Tomosynthesis of each breast in the CC and MLO projections. ADDITIONAL IMAGING: None Computer-aided detection was employed with the iCAD Plink AI 3-D. TISSUE DENSITY: The breasts are heterogeneously dense, which may obscure small masses. (BI-RADS category C) FINDINGS: RIGHT BREAST: No suspicious mass. No suspicious calcification. No distortion. No additional suspicious right breast findings LEFT BREAST: No suspicious mass. No suspicious calcification. No distortion. No additional suspicious left breast findings Procedure [...] Signed Date: 10/08/2024 17:42 ET Workstation ID: [id number] Transcribed By: Self Edit Transcribed Date: 10/08/2024 17:33 ET us Self Referral Sppl IMG BI PROCEDURES Final Resul t * LUIS DEXA AXIAL SKELETON (09/08/2022 10:18 AM EST) Anatomical Region Laterality Modality Mammography 09/08/2022 9:24 AM EST Narrative 09/08/2022 10:18 AM EST [facility] Diagnostic Imaging Department [address] [place] [id number] Patient: NASRIN CORREIA/Age/Sex: 1955 - 66 - F Unit#: [id number] Location/Status: SPDIMAM/REG CLI [facility]em[facility] Ordering Physician: WESTLEY WOLFE MD Luis Dexa Axial Skeleton - 09/08/22 - HISTORY: The patient is a 66-year-old postmenopausal female with clinical concern for metabolic bone disease. FINDINGS: Dual [...] 136% of that of age matched controls. This yields a T-score of 1.1 and a Z-score of 2.4 and there is therefore no evidence of osteoporosis or osteopenia here. IMPRESSION: 1. There is no evidence of osteoporosis or osteopenia. There has been an increase of 6.7% in bone mineral density in the lumbar spine since the prior examination of 06/02/2017. There has been an increase of 2.3% in bone mineral density in the right femur and an increase of 1.3% in bone mineral density in the left femur. 2. FRAX analysis yields a 10-year probability of major osteoporotic fracture of 11.3% and a 10-year probability of hip fracture of 0.7%. Code 68266 Dictating Physician: ARTEM CONWAY MD Electronically Signed by: ARTEM CONWAY MD Dic Date/Time: 09/08/22 1017 Sign date/Time: 09/08/22 1018 Procedure Note Artem Conway MD - 12/02/2023 [facility] Diagnostic Imaging Department [address] [place] [address] Patient: NASRIN CORREIA Kayode Ferro./Age/Sex: 1955 - 66 - F Unit#: [id number] Location/Status: SPDIMAM/REG CLI Mnemonic/[facility] Ordering Physician: WESTLEY WOLFE MD Luis [...] density of the femurs bilaterally is 1.144 gm/df6uzfmz is 114% of that of young normals [...] probability of hip fracture of 0.7%. Code 73696 Dictating Physician: ARTEM CONWAY MD Electronically Signed by: ARTEM CONWAY MD Dic Date/Time: 09/08/22 1017 Sign date/Time: 09/08/22 1018 Westley Wolfe MD IMG BI PROCEDURES Final Result from Last 3 Months or Most Recently Relevant to Health Maintenance Insurance [facility] Care Teams Skoog Patching Machine Operator Relationship Specialty Start Date End Date Ana Jarrell MD [address] [place] [address] PCP - General Internal Medicine 10/04/24
--- OUTSIDE RECORDS SUMMARY | 2025-08-14 10:54 | XMS_ITS | Patient Health Record ---
Author Organization [facility] Address [address] [place] [address] Care Team Providers Care Stained Glass Glazier Name Role Phone Ana Jarrell MD Primary Care Provider Deejay Mercado Unavailable [phone] Allergies No Known Allergies Reason For Referral [...] (1000 UT) 1 capsule Orally Once a day; Duration: 30 day(s) Active Synthroid 88 MCG 1 tablet every morni ng on an empty stomach Orally Once a day Active Immunizations Vaccine Route Administration Date Status Comme nts Influenza Unknown 2024 Refused Problems Problem Type SNOMED Code ICD Code Onset Dates Problem Status W/U Status Risk Notes Problem Colon cancer screening (562238445) Colon cancer screening (Z12.11) Active confirmed Problem Diverticulitis of colon (485280260) Diverticulitis of large intestine without perforation or abscess without bleeding (K57.32) Active confirmed Problem Pre-procedure evaluation check (448421379) Encounter for other preprocedural examination (Z01.818) Active confirmed Vital Signs Temperature 98.0 degrees Fahrenheit 2024 Blood pressure diastolic 00 mm Hg 2024 Height 60 in 2024 Blood pressure systolic 000 mm Hg 2024 Weight 153 lb 2 oz lbs 2024 BMI 29.90 kg/m2 2024 Encounters Encounter Location Date Provider Diagnosis [facility] [place] [address] [place], [place] [phone] 03/27/2025 Deejay Bauman Colon cancer screeni ng Z12.11 ; Diverticulosis of sigmoid colon K57.30 and Internal hemorrhoids K64.8 [facility] [address] [place] [address] 2024 Deejay Bauman Colon cancer screeni ng Z12.11 ; Diverticulitis of large intestine without perforation or abscess without bleeding K57.32 and Encounter for other preprocedural examination Z01.818 [facility] [address] [place] [address] 04/03/2025 Deejay Bauman Assessments Encounter Date Diagnosis (ICD Code) Assessment Notes Treatment Notes Treatment Clinical Notes Section Notes 03/27/2025 Colon cancer screening (ICD-10 - Z12.11) 03/27/2025 Diverticulosis of sigmoid colon (ICD-10 - K57.30) 2024 Colon cancer screening (ICD-10 - Z12.11) [...] to keep you advised of her progress. 03/27/2025 Internal hemorrhoids (ICD-10 - K64.8) 2024 Encounter for other preprocedural examination (ICD-10 [...] Name Order Date COLONOSCOPY 04/24/2014 COLONOSCOPY 2024 Insurance Providers Payer Name Payer Address Payer Phone Subscriber Number Group Number Insured Name Patient Relationship to Insured Coverage Start Date Coverage End Date MEDICARE OF [place] [address] [place] [id number] [id number] NASRIN SINGH Self - patient is the insured [employer] ATT[employer] CLAIMS [address] [place] [address] [id number] NASRIN SINGH Self - patient is the insured Medical (General) History Medical History History ICD Code Denies DC,DM,CVA,Lung disease,renal dise ase Hypertension Hypothyroidism Hyperlipidemia Neg. screening colonoscopy i n 07/2014 except for diverticulosis and internal hemorrhoids Sigmoid diverticulitis in 03/2017--treate d with outpatient antibiotics Melanoma on back Surgical History Surgery Date(Month/Year) cyst removed from breast-benign melanoma on back
[2025-08-14 13:07] LABS: MANUAL DIFF FLAG NO
[2025-08-14 13:11] LABS: Hematocrit 37.2 % (37.0-47.0); Hemoglobin 11.5 g/dl (12.0-16.0); Imm Gran Abs Auto 0.01 X10*3/uL (0.00-0.03); Imm Gran Pct Auto 0.2 % (0.0-0.4); Lymphocytes Absolute Auto 1.8 X10*3/uL (1.2-4.9); Mean Corpuscular HGB Conc 30.9 g/dl (31.0-35.0); Mean Corpuscular Hemoglobin 30.9 pg (27.0-33.0); Mean Corpuscular Volume 100.0 fL (80.0-98.0); NRBC Abs Auto 0.000 X10*3/uL (0.0-0.012); NRBC Pct Auto 0.0 /100WBC (0.0-0.2); Platelet Count 263 X10*3/uL (160-400); Red Blood Count 3.72 X10*6/uL (4.20-5.50); White Blood Count 5.1 X10*3/uL (4.8-10.8)
[2025-08-14 14:09] LABS: Alanine Aminotransferase 20 U/L (0-31); Albumin Level 4.1 g/dL (3.5-5.0); Alkaline Phosphatase 50 U/L (39-117); Anion Gap 10 (12-20); Aspartate Amino Transferase 26 U/L (5-31); Blood Urea Nitrogen 13 mg/dL (9-16); Calcium 8.9 mg/dL (8.4-10.2); Carbon Dioxide 27 mmol/L (22-29); Chloride 110 mmol/L (96-108); Cholesterol 159 mg/dL (<200); Estimated Glomerular Filt Rate > 60; HDL Cholesterol 52 mg/dL (>40); Potassium 3.9 mmol/L (3.3-5.1); Sodium 143 mmol/L (135-145); Total Protein 6.4 g/dL (6.5-8.0); Triglycerides 75 mg/dL (<150)
== END 2025-08-14 09:31 | disposition home or self-care (01) ==
LOC: HO.HMGCLDS 09:30
PROVIDERS: PCP Internal Medicine; Visit Provider Internal Medicine
DX: I10 Essential (primary) hypertension (principal); E78.5 Hyperlipidemia, unspecified; E55.9 Vitamin D deficiency, unspecified; E03.9 Hypothyroidism, unspecified
CPT/HCPCS: 36415; 80053; 80061; 82306; 84443; 85025

== ENCOUNTER 2025-08-16 10:38 | Outpatient (AMB) | payer MEDICARE, SELFPAY ==
--- OUTSIDE RECORDS SUMMARY | 2025-03-27 04:30 | XMS_ITS ---
Author Organization [facility] Address [address] [place] [address] Care Team Providers Care Corporate Development Intern Name Role Phone Ana Jarrell MD Primary Care Provider Deejay Mercado [phone] REASON FOR VISIT screening Encounters Encounter Location Date Provider Diagnosis [facility] Outpatient [address] [place], [place] [id number] 03/27/2025 Deejay Bauman Colon cancer scree yulissa [...] Notes * TEJINDER CORREIAOB:[birth year] (69 yo F)Acc No.[id number]:03/27/2025 COLON WITH MAC Patient: CHRISS WILSON Provider: Uzair Bauman MD :1955 A ge:69 Y S ex:Female Date:03/27/2025 Address: [address] [facility] Pcp:Ana Jarrell MD Subjective: * Chief Complaints: [...] 03/27/2025 Generated for Aranza scott/Chun/Ramyitting on: 1 12:59 PM EDT
[2025-08-16 10:40] VITALS: BP 124/74; PULSE 72; RESP 17; TEMP 36.8; O2SAT 95; BMI 28.7
--- NOTE | 2025-08-16 10:40 | A.OFFPC_ITS ---
Vital Signs 08/16/25 10:40 Height 5 ft Weight 147 lb BMI 28.7 BP 124/74 Blood Pressure Location Lt brachial Position Sitting Respiration 17 Pulse 72 Pulse Source Pulse Oximeter Temp 98.2 F Temp Source Oral Pulse Oximetry (%) 95 Oxygen Delivery Method Room Air Intake Visit Reasons: ringing in the ear Intake Note: Pt is here today for a sick visit. Pt c/o bilateral ringing in the ear. Allergies No Known Allergies Allergy (Verified 08/16/25 10:41) Medication List - Last Reconciled 08/16/25 by Ana Jarrell MD cholecalciferol (vitamin D3) 50 mcg PO DAILY dicyclomine 20 mg PO DAILY PRN levothyroxine 88 mcg PO DAILY lisinopril 20 mg PO DAILY rosuvastatin 5 mg PO DAILY Tobacco use date assessed: 08/16/25 Fall risk assessment: No Falls in past year Last assessed Fall Risk: 08/16/25 Dental Screening Dental Screen Date: 08/16/25 Did you have a dental visit in the last 12 months?: Yes Did you have a dental problem in the last 6 months where you did not have access to dental care?: No Was dental information given to patient?: Patient has dentist HPI ringing in the ear HPI Details Pt presents complaining of ringing in the ears for few months on and off. Patient denies any change in the hearing or balance. She complains of chronic right knee pain worse when sitting also at night, feels better when walking. Patient denies joint swelling erythema warmth or injury. Hypertension and hyperlipidemia are controlled on current medications. [facility] Medical History (Updated 08/16/25 @ 11:27 by Ana Jarrell MD) Diverticulitis Hyperlipidemia Skin cancer Hypothyroidism HTN (hypertension) Surgical History Hx of excision of mass Hx of excision of mass H/O colonoscopy Family History Father Angina pectoris Cancer Mother No problems noted. Maternal Grandmother Breast CA Brother Cancer Brother Skin cancer Brother Multiple sclerosis Son Testicular cancer Daughter Asthma Social History Household Members Other:: , boyfriend, 2 children, 3 grandchildren Housing: House Alcohol intake: current Alcohol intake frequency: holidays/special occasions only Patient Tobacco Use Status: Former Tobacco user Years Smoked: 10 e-Cigarette/Vaping Use: Never Used Second Hand Smoke Exposure: No service: No Current occupational status: retired Cognitive needs: No Hearing needs: No Vision needs: No Questionnaire PHQ-9 Over the last 2 weeks, how often have you been bothered by any of the following problems? 1. Little interest or pleasure in doing things: not at all 2. Feeling down, depressed, or hopeless: not at all 3. Trouble falling or staying asleep, or sleeping too much: not at all 4. Feeling tired or having little energy: not at all 5. Poor appetite or overeating: not at all 6. Feeling bad about yourself - or that you are a failure or have let yourself or your family down: not at all 7. Trouble concentrating on things, such as reading the newspaper or watching television: not at all 8. Moving or speaking so slowly that other people could have noticed. Or the opposite - being so fidgety or restless that you have been moving around a lot more than usual: not at all 9. Thoughts that you would be better off or of hurting yourself in some way: not at all Total score: 0 Depression Screening Interpretation: Negative Depression Screening Done: Yes Source: Developed by Drs. Deejay Miles, Sabrina Rivas, Vasquez Cassidy and colleagues, with an educational annelise from [employer]. Thrive Questionnaire Date Thrive assessed: 08/15/25 I am a: Patient What is your living situation today?: I have a steady place to live Within the past 12 months, did the food you bought not last and you didn't have the money to get more?: Never true Within the past 12 months, did you worry whether your food would run out before you got money to buy more?: Never true Do you have trouble paying for medicines?: No Do you have trouble getting transportation to medical appointments?: No Do you have trouble paying your heating and electricity bill?: No Do you have trouble taking care of your child, family member or friend?: No Do you have trouble with day-to-day activities such as bathing, preparing meals, shopping, managing finances, etc.?: No Are you currently unemployed and looking for a job?: No Are you interested in more education?: No Please select the resources that you would like help with: None Currently or been in a relationship where the following occur: No concerns reported THRIVE Score: 0 AUDIT C Alcohol Use Questionnaire (AUDIT-C) 1. How often do you have a drink containing alcohol?: Monthly or less 2. How many drinks containing alcohol do you have on a typical day when you are drinking?: 1 or 2 3. How often do you have six or more drinks on one occasion?: Never Total Score: 1 MIR-7 AMB Questionnaire MIR-7 Date MIR - 7 assessed: 08/15/24 Feeling nervous, anxious, or on edge: 0 = Not at all Not being able to stop or control worryin = Not at all Worrying too much about different things: 0 = Not at all Trouble relaxin = Not at all Being so restless that it is hard to sit still: 0 = Not at all Becoming easily annoyed or irritable: 0 = Not at all Feeling afraid as if something awful might happen: 0 = Not at all Total MIR-7 score (0-4 normal; 5-9 mild; 10-14 moderate; 15-21 severe): 0 Source: Developed by Drs. Deejay Miles, Sabrina Rivas, Vasquez Cassidy and colleagues, with an educational annelise from [employer]. Review of Systems Const All systems reviewed & are unremarkable except as noted in HPI and below ENT Reports no additional complaints Card Reports no additional complaints Resp Reports no additional complaints GI Reports no additional complaints Reports no additional complaints Physical exam (Primary Care) Vital Signs: Last Vital Signs Temp 98.2 F 08/16/25 10:40 Pulse 72 08/16/25 10:40 Resp 17 08/16/25 10:40 BP 124/74 08/16/25 10:40 Pulse Ox 95 08/16/25 10:40 Oxygen Delivery Method Room Air 08/16/25 10:40 BMI result Body Mass Index 28.7 Tobacco/Smoking Status: Tobacco use Status Tobacco use date assessed 08/16/25 08/16/25 10:47 Patient Tobacco Use Status Former Tobacco user 08/16/25 10:47 e-Cigarette/Vaping Use Never Used 08/16/25 10:47 PHQ-9: PHQ-9 Score PHQ-9: Total score 0 08/16/25 11:22 Depression Screening Interpretation: Negative Thrive Assessment: Date of Thrive Assessment Date Thrive assessed 08/15/25 08/16/25 10:47 Currently or been in a relationship where the following occur: No concerns reported Const General: no acute distress HENMT Ears: hearing grossly normal bilaterally and TM's normal bilaterally Face and sinus: Yes normal facial exam Eyes General: appearance normal, both eyes and all related structures Neck Neck: Yes no lymphadenopathy and Yes supple Resp Effort & Inspection: normal respiratory effort Auscultation: clear to auscultation bilaterally Cardio Rhythm: regular rhythm Heart sounds: S1 normal heart sound present and S2 normal heart sound present Extrem Other: Right knee was slightly decreased range of motion and crepitus, no joint tenderness erythema warmth Coding Level of Care Code Est Pt Level 4 (38951) Diagnoses HTN (hypertension) I10 Hyperlipidemia E78.5 Right knee pain M25.561 Tinnitus H93.19 Anemia D64.9 Assessment & Plan Assessment & Plan (1) HTN (hypertension): Code(s): I10 - Essential (primary) hypertension Category: Medical Plan: Continue medication (2) Hyperlipidemia: Code(s): E78.5 - Hyperlipidemia, unspecified Category: Medical Plan: Continue statin (3) Right knee pain: Code(s): M25.561 - Pain in right knee Category: Medical Plan: For right knee osteoarthritis meloxicam 7.5 mg daily for 1 week is prescribed. patient will start her home exercises. if the pain persists x-ray will be obtained and she will be referred to physical therapy (4) Tinnitus: Code(s): H93.19 - Tinnitus, unspecified ear Category: Medical Plan: pt declined hearing test, (5) Anemia: Code(s): D64.9 - Anemia, unspecified Category: Medical Plan: check vit B 12 and Iron Orders: Orders Vitamin B12 and Folate Today D64.9 - Anemia, unspecified IRON PROFILE Today D64.9 - Anemia, unspecified Lipid Panel 7 Months E03.9 - Hypothyroidism, unspecified, E78.5 - Hyperlipidemia, unspecified, I10 - Essential (primary) hypertension TSH reflex Free T4 7 Months E03.9 - Hypothyroidism, unspecified, E78.5 - Hyperlipidemia, unspecified, I10 - Essential (primary) hypertension Comprehensive [place]. Panel Fast 7 Months E03.9 - Hypothyroidism, unspecified, E78.5 - Hyperlipidemia, unspecified, I10 - Essential (primary) hypertension Complete Blood Count Auto Diff 7 Months E03.9 - Hypothyroidism, unspecified, E78.5 - Hyperlipidemia, unspecified, I10 - Essential (primary) hypertension Medications: New meloxicam 7.5 mg PO DAILY 10 tabs 0RF
--- OUTSIDE RECORDS SUMMARY | 2025-08-16 13:00 | XMS_ITS | Clinical Summary ---
Author Organization [facility] Address [address] [place] [address] Phone Care Team Providers Care Day Haul Youth Supervisor Name Role Phone Ana aJrrell MD Primary Care Provider [phone] Surgical History Surgery Date Site/Laterality Comments BREAST [...] Signed Date: 10/08/2024 17:42 ET Workstation ID: [id number] Transcribed By: Self Edit Transcribed Date: 10/08/2024 [...] Computer-aided detection was employed with the [employer] AI 3-D. TISSUE DENSITY: The breasts are [...] Signed Date: 10/08/2024 17:42 ET Workstation ID: [id number] Transcribed By: Self Edit Transcribed Date: 10/08/2024 17:33 ET us Self Referral Sppl IMG BI PROCEDURES Final Resul t * LUIS DEXA AXIAL SKELETON (09/08/2022 10:18 AM EST) Anatomical Region Laterality Modality Mammography 09/08/2022 9:24 AM EST Narrative 09/08/2022 10:18 AM EST [facility] Diagnostic Imaging Department [address] [place] [address] Patient: NASRIN CORREIA/Age/Sex: 1955 - 66 - F Unit#: [id number] Location/Status: SPDIMAM/REG CLI Mnemonic[facility] Ordering Physician: WESTLEY WOLFE MD [...] probability of hip fracture of 0.7%. Code 57927 Dictating Physician: ARTEM CONWAY MD Electronically Signed by: ARTEM CONWAY MD Dic Date/Time: 09/08/22 1017 Sign date/Time: 09/08/22 1018 Procedure Note Artem Conway MD - 12/02/2023 [facility] Diagnostic Imaging Department [address] [place] [address] Patient: NASRIN CORREIA Kayode Ferro./Age/Sex: 1955 - 66 - F Unit#: [id number] Location/Status: SPDIMAM/REG CLI Mnemonic[facility] Ordering Physician: WESTLEY WOLFE MD [...] density of the femurs bilaterally is 1.144 gm/hd8cwmwm is 114% of that of young normals [...] probability of hip fracture of 0.7%. Code 33339 Dictating Physician: ARTEM CONWAY MD Electronically Signed by: ARTEM CONWAY MD Dic Date/Time: 09/08/22 1017 Sign date/Time: 09/08/22 1018 Westley Wolfe MD IMG BI PROCEDURES Final Result from Last 3 Months or Most Recently Relevant to Health Maintenance Insurance [employer] Care Teams Day Haul Youth Supervisor Relationship Specialty Start Date End Date Ana Jarrell MD [address] [place] [address] PCP - General Internal Medicine 10/04/24
--- OUTSIDE RECORDS SUMMARY | 2025-08-16 13:00 | XMS_ITS | Patient Health Record ---
Author Organization [facility] Address [address] [place] [address] Care Team Providers Care Licensed [place] Real Estate Appraiser Name Role Phone Ana Jarrell MD Primary Care Provider Deejay Mercado Unavailable [phone] Allergies No Known Allergies Reason For Referral [...] Status Risk Notes Problem Colon cancer screening (252186493) Colon cancer screening (Z12.11) Active confirmed Problem Diverticulitis of colon (697480863) Diverticulitis of large intestine without perforation or abscess without bleeding (K57.32) Active confirmed Problem Pre-procedure evaluation check (763862502) Encounter for other preprocedural examination (Z01.818) Active confirmed Vital Signs Temperature 98.0 degrees Fahrenheit 2024 Blood pressure diastolic 00 mm Hg 2024 Height 60 in 2024 Blood pressure systolic 000 mm Hg 2024 Weight 153 lb 2 oz lbs 2024 BMI 29.90 kg/m2 2024 Encounters Encounter Location Date Provider Diagnosis [facility] Outpatient [address], [place] [id number] 03/27/2025 Deejay Bauman Colon cancer screeni ng Z12.11 ; Diverticulosis of sigmoid colon K57.30 and Internal hemorrhoids K64.8 [facility] [address] [place] [address] 2024 Deejay Bauman Colon cancer screeni ng Z12.11 ; Diverticulitis of large intestine without perforation or abscess without bleeding K57.32 and Encounter for other preprocedural examination Z01.818 [facility] [address] [place] [address] 04/03/2025 Deejay Bauman Assessments Encounter Date Diagnosis [...] OF [place] [address] [place] [address] [id number] NASRIN SINGH Self - patient is the insured [employer] CLAIM[employer] [address] [place] [address] [id number] NASRIN SINGH Self - patient is the insured Medical (General) History Medical History History ICD Code Denies NM,DM,CVA,Lung disease,renal dise ase Hypertension Hypothyroidism Hyperlipidemia Neg. screening colonoscopy i n 07/2014 except for diverticulosis and internal hemorrhoids Sigmoid diverticulitis in 03/2017--treate d with outpatient antibiotics Melanoma on back Surgical History Surgery Date(Month/Year) cyst removed from breast-benign melanoma on back
== END 2025-08-16 13:13 | disposition home or self-care (01) ==
LOC: HO.HMCC 10:38
PROVIDERS: PCP Internal Medicine; Visit Provider Internal Medicine
DX: I10 Essential (primary) hypertension (principal); E78.5 Hyperlipidemia, unspecified; M25.561 Pain in right knee; H93.19 Tinnitus, unspecified ear; D64.9 Anemia, unspecified

== ENCOUNTER 2025-08-16 10:38 | Outpatient (REF) | payer MEDICARE, SELFPAY ==
[2025-08-16 14:11] LABS: Iron 97 mcg/dL (30-160); Percent Iron Saturation 38 % (15-50); Total Iron Binding Capacity 255 mcg/dL (228-428); Unsaturated Iron Binding 158 ug/dL
[2025-08-16 15:13] LABS: Folate 7.9 ng/mL (> or = 4.0); Vitamin B12 196 pg/mL (200-900)
== END 2025-08-16 10:39 | disposition home or self-care (01) ==
LOC: HO.HMGCLDS 10:38
PROVIDERS: PCP Internal Medicine; Visit Provider Internal Medicine
DX: I10 Essential (primary) hypertension (principal); E78.5 Hyperlipidemia, unspecified; D64.9 Anemia, unspecified; M25.561 Pain in right knee; H93.13 Tinnitus, bilateral; Z79.890 Hormone replacement therapy; Z79.899 Other long term (current) drug therapy
CPT/HCPCS: 36415; 82607; 82746; 83540; 99212

== ENCOUNTER 2025-10-01 09:46 | Outpatient (REF) | payer MEDICARE, SELFPAY ==
--- OUTSIDE RECORDS SUMMARY | 2025-10-01 10:52 | XMS_ITS | Clinical Summary ---
Author Organization [facility] Address [address] [place] [address] Phone Care Team Providers Care Facing End Trimmer Name Role Phone Ana Jarrell MD Primary Care Provider [phone] Surgical History Surgery Date Site/Laterality Comments BREAST [...] 10/08/2024 11:04 AM EST Plan of Treatment Upcoming Encounters Date Type Department Care Team (Late st Contact Info) Description 10/11/2025 10:15 AM EST [facility]ointment [facility] [address] [address] Health Maintenance Due Date Last Done Comments [...] Additional history exists Influenza Vaccine (#1) 2025 , 08/25/2022, 08/25/2020 Breast Cancer Screening 10/08/2026 10/08/20 [...] Encounter for screening mammogram for breast cancer [facility] DEXA AXIAL SKELETON Routine 09/08/2022 10:18 AM [...] Signed Date: 10/08/2024 17:42 ET Workstation ID: [id number] Transcribed By: Self Edit Transcribed Date: 10/08/2024 17:33 ET Narrative 10/08/2024 5:42 PM EST EXAM: SCREENING MAMMOGRAPHY, BILATERAL HISTORY: SCREENING. Scar from cyst removal 3 o'clock left breast 1978. Maternal grandmother with history of breast cancer. COMPARISON: 10/05/2023, 09/08/2022, 09/04/2021, 09/01/2020 TECHNIQUE: Synthesized CC and MLO projections of each breast. Tomosynthesis of each breast in the CC and MLO projections. ADDITIONAL IMAGING: None Computer-aided detection was employed with the [employer] AI 3-D. TISSUE DENSITY: The breasts are [...] Computer-aided detection was employed with the iCAD [employer] AI 3-D. TISSUE DENSITY: The breasts are [...] Signed Date: 10/08/2024 17:42 ET Workstation ID: [id number] Transcribed By: Self Edit Transcribed Date: 10/08/2024 17:33 ET us Self Referral Sppl IMG BI PROCEDURES Final Resul t * LUIS DEXA AXIAL SKELETON (09/08/2022 10:18 AM EST) Anatomical Region Laterality Modality Mammography 09/08/2022 9:24 AM EST Narrative 09/08/2022 10:18 AM EST [facility] Diagnostic Imaging Department [address] [place] [address] Patient: NASRIN CORREIA /Age/Sex: 1955 66 - F Unit#: [id number] Location/Status: SPDIMAM/REG CLI Mnemonic[facility] Ordering Physician: WESTLEY WOLFE MD Luis Dexa [...] probability of hip fracture of 0.7%. Code 56624 Dictating Physician: ARTEM CONWAY MD Electronically Signed by: ARTEM CONWAY MD Dic Date/Time: 09/08/22 1017 Sign date/Time: 09/08/22 1018 Procedure Note Artem Conway MD - 12/02/2023 [facility] Diagnostic Imaging Department [address] [place] [address] Patient: BRENNASRIN Kayode Ferro./Age/Sex: 1955 - 66 - F Unit#: [id number] [facility]/Ordering Site: [facility] Ordering Physician: WESTLEY WOLFE MD [facility] Dexa Axial Skeleton - 09/08/22 - [...] density of the femurs bilaterally is 1.144 gm/bz7gchcg is 114% of that of young normals [...] probability of hip fracture of 0.7%. Code 89438 Dictating Physician: ARTEM CONWAY MD Electronically Signed by: ARTEM CONWAY MD Dic Date/Time: 09/08/22 1017 Sign date/Time: 09/08/22 1018 Westley Wolfe MD IMG BI PROCEDURES Final Result from Last 3 Months or Most Recently Relevant to Health Maintenance Insurance MEDICARE [facility] Care Teams Facing End Trimmer Relationship Specialty Start Date End Date Ana Jarrell MD [address] [place] [address] PCP - General Internal Medicine 10/04/24
[2025-10-01 13:44] LABS: MANUAL DIFF FLAG NO
[2025-10-01 14:00] LABS: Hematocrit 35.5 % (37.0-47.0); Hemoglobin 11.3 g/dl (12.0-16.0); Imm Gran Abs Auto 0.01 X10*3/uL (0.00-0.03); Imm Gran Pct Auto 0.2 % (0.0-0.4); Lymphocytes Absolute Auto 1.7 X10*3/uL (1.2-4.9); Mean Corpuscular HGB Conc 31.8 g/dl (31.0-35.0); Mean Corpuscular Hemoglobin 31.0 pg (27.0-33.0); Mean Corpuscular Volume 97.3 fL (80.0-98.0); NRBC Abs Auto 0.000 X10*3/uL (0.0-0.012); NRBC Pct Auto 0.0 /100WBC (0.0-0.2); Platelet Count 249 X10*3/uL (160-400); Red Blood Count 3.65 X10*6/uL (4.20-5.50); White Blood Count 4.9 X10*3/uL (4.8-10.8)
[2025-10-01 14:40] LABS: Folate 9.7 ng/mL (> or = 4.0); Vitamin B12 440 pg/mL (200-900)
== END 2025-10-01 09:47 | disposition home or self-care (01) ==
LOC: HO.HMGCLDS 09:46
PROVIDERS: PCP Internal Medicine; Visit Provider Internal Medicine
DX: E53.8 Deficiency of other specified B group vitamins (principal)
CPT/HCPCS: 36415; 82607; 82746; 85025